=== PATIENT | female | born 1950 | race Caucasian/White ===

== ENCOUNTER → 2017-09-06 16:32 | Outpatient (CLI) | payer MEDICARE, SELFPAY ==
[2017-09-06 17:45] LABS: Absolute Lymphocyte Count 1.55 X10^3/ul (0.83-4.51); Absolute Neutrophil Count 2.7 X10^3/uL (2.0-7.7); Basophil# 0.02 X10^3/uL; Basophil% 0.4 % (0-1); Eosinophil# 0.19 X10^3/uL; Eosinophils% 3.9 % (0-5); Hematocrit 39.8 % (37-47); Hemoglobin 13.1 g/dl (12.0-15.0); Lymphocyte # 1.55 X10^3/ul (4.0); Lymphocyte % 31.8 % (19-41); Mean Corp Hgb Conc 32.9 g/gl (32-36); Mean Corpuscular Hgb 27.6 pg (27.0-32.0); Mean Corpuscular Volume 83.8 fL (81-99); Mean Platelet Vol. 9.7 fl (6.2-12.0); Monocyte# 0.39 X10^3/uL; Neutrophil # 2.71 X10^3/uL (2.7-7.7); Neutrophil % 55.5 % (47-70); Platelet Count 312 K/mm3 (150-450); RBC Distribution Width CV 15.5 % (11.6-14.6); RBC Distribution Width SD 46.8 fl (35.1-43.9); Red Blood Count 4.75 M/mm3 (4.2-5.4); White Blood Count 4.9 K/mm3 (4.4-11.0)
[2017-09-06 17:47] LABS: POSITIVE COUNT NO; POSITIVE DIFFERENTIAL NO; POSITIVE MORPHOLOGY NO
[2017-09-06 17:55] LABS: Vitamin D,25 Hydroxy 30.8 ng/mL (29.95-100.01)
[2017-09-06 18:12] LABS: ALB/GLOB Ratio 0.9 RATIO (0.9-2.4); AST(SGOT) 20 U/L (15-37); Alanine Aminotransfer ALT/SGPT 24 U/L (13-56); Albumin, Serum 3.4 g/dL (3.2-5.0); Alkaline Phosphatase 122 U/L (45-117); Anion Gap 11 (5-15); BUN 12 mg/dL (7-18); BUN/Creat Ratio 16.4 RATIO (10-20); Calcium,Total 8.8 mg/dL (8.5-10.1); Chloride 110 mmol/L (98-107); Creatinine, Serum 0.73 mg/dL (0.55-1.02); EST Glomerular Filtration Rate 84 mL/min (>60); Est Glom Filt Rate - Afr Amer 102 mL/min (>60); Globulin 3.6 g/dL (2.2-4.2); Glucose 135 mg/dL (74-106); Potassium 3.9 mmol/L (3.5-5.1); Sodium Level 143 mmol/L (136-145); Thyroid Stim Hormone (TSH) 1.19 uIU/mL (0.358-3.74)
== END ==
PROVIDERS: Visit Provider Family Medicine Geriatric Medicine
DX: E11.9 Type 2 diabetes mellitus without complications (principal); E55.9 Vitamin D deficiency, unspecified; I10 Essential (primary) hypertension
CPT/HCPCS: 36415; 80053; 82306; 84443; 85025

== ENCOUNTER → 2018-03-10 14:43 | Outpatient (CLI) | payer MEDICARE, SELFPAY ==
[2016-10-25 16:24] VITALS: BMI 30.7
[2018-03-10 15:54] LABS: Absolute Lymphocyte Count 2.07 X10^3/ul (0.83-4.51); Absolute Neutrophil Count 3.4 X10^3/uL (2.0-7.7); Basophil# 0.03 X10^3/uL; Basophil% 0.5 % (0-1); Eosinophil# 0.19 X10^3/uL; Hematocrit 34.2 % (37-47); Hemoglobin 10.4 g/dl (12.0-15.0); Lymphocyte # 2.07 X10^3/ul (4.0); Lymphocyte % 33.2 % (19-41); Mean Corp Hgb Conc 30.4 g/gl (32-36); Mean Corpuscular Hgb 21.1 pg (27.0-32.0); Mean Corpuscular Volume 69.5 fL (81-99); Mean Platelet Vol. 9.8 fl (6.2-12.0); Monocyte# 0.57 X10^3/uL; Monocyte% 9.1 % (0-10); Neutrophil # 3.35 X10^3/uL (2.7-7.7); Neutrophil % 53.9 % (47-70); Platelet Count 386 K/mm3 (150-450); RBC Distribution Width CV 20.8 % (11.6-14.6); RBC Distribution Width SD 51.2 fl (35.1-43.9); Red Blood Count 4.92 M/mm3 (4.2-5.4); White Blood Count 6.2 K/mm3 (4.4-11.0)
[2018-03-10 15:58] LABS: Differential Indicated SCAN CRITERIA MET; POSITIVE COUNT NO; POSITIVE DIFFERENTIAL NO; POSITIVE MORPHOLOGY YES
[2018-03-10 16:03] LABS: Vitamin D,25 Hydroxy 26.5 ng/mL (29.95-100.01)
[2018-03-10 16:05] LABS: AST(SGOT) 16 U/L (15-37); Alanine Aminotransfer ALT/SGPT 23 U/L (13-56); Albumin, Serum 3.6 g/dL (3.2-5.0); Alkaline Phosphatase 120 U/L (45-117); Anion Gap 7 (5-15); BUN 17 mg/dL (7-18); Calcium,Total 8.9 mg/dL (8.5-10.1); Chloride 106 mmol/L (98-107); Creatinine, Serum 0.81 mg/dL (0.55-1.02); EST Glomerular Filtration Rate 75 mL/min (>60); Est Glom Filt Rate - Afr Amer 90 mL/min (>60); Globulin 3.6 g/dL (2.2-4.2); Glucose 113 mg/dL (74-106); Potassium 4.4 mmol/L (3.5-5.1); Protein, Total 7.2 g/dL (6.4-8.2); Sodium Level 140 mmol/L (136-145); Thyroid Stim Hormone (TSH) 1.93 uIU/mL (0.358-3.74)
[2018-03-10 16:23] LABS: Differential Comment SCANNED
[2018-03-10 16:24] LABS: Anisocytosis 2+; Hypochromasia 1+; Ovalocyte 1+; Schistocytes RARE; Target Cells 1+
== END ==
PROVIDERS: Visit Provider Family Medicine Geriatric Medicine
DX: E11.9 Type 2 diabetes mellitus without complications (principal); E55.9 Vitamin D deficiency, unspecified; I10 Essential (primary) hypertension
CPT/HCPCS: 36415; 80053; 82306; 84443; 85025

== ENCOUNTER → 2018-03-16 16:43 | Outpatient (CLI) | payer MEDICARE, OTHER, SELFPAY ==
[2016-10-25 16:24] VITALS: BMI 30.7
--- NOTE | 2018-03-16 16:48 | CT_ITS ---
STUDY: LOW DOSE CT LUNG CANCER SCREENING REASON FOR EXAM: Female, 68 years old. History of 25 pack-year smoker. RADIATION DOSAGE (If Supplied By Facility): CTDIvol = ( 3.02 ) mGy, DLP = ( 100.81 ) mGycm TECHNIQUE: No contrast was administered. Low dose technique was utilized (average mAS-38 and kVp 120). 1.25 mm axial source images with a slice interval of 1.25-mm were reconstructed in lung windows. 2.5 mm axial source images with a slice interval of 2.5-mm were reconstructed in lung windows. 5.0 mm axial source images with a slice interval of 5.0-mm were reconstructed in soft tissue windows. Nodule measured using lung windows on PACS and/or independent workstation with automated measurement of minimum and maximum diameter. Nodule measurement reported as average diameter rounded to the nearest whole number. Growth is defined as an increase ins size of greater than 1.5 mm. COMPARISON: Comparison is made with prior CT scan of the thorax dated May 09, 2016. NODULES: There is a 4 mm noncalcified nodule in the anterior aspect of the right lower lobe abutting the right major fissure. This also evidence of a 5 mm noncalcified nodule in the right middle lobe anteriorly as seen on axial image #119. This is essentially unchanged. 1.5 mm noncalcified nodule in the posterior segment of the left lower lobe as seen on image #161. Total lung nodules (excluding granulomas): 3 Emphysema: No evidence of emphysema. Aorta: Calcified plaques at the level of the aortic arch. Coronary arteries: Mild coronary artery calcifications. CT/Low Dose CT Lung Screening IMPRESSION: Lung-RADS category 2 - Continue annual screening with LDCT in 12 months. IMPORTANT NOTES FOR USE: ACR Lung-RADS Version 1.0 Assessment Categories Release Date: August 21, 2013 Category: Coded 0-4 bases on nodule(s) with highest degree of suspicion. Negative screen is defined as categories 1 and 2; a positive screen is defined as categories 3 and 4. Category 3 and 4A nodules that are unchanged on interval CT should be coded as category 2, and individuals returned to screening in 12 months. Category 4X: Category 3 or 4 nodules with additional imaging findings that increase the suspicion of lung cancer, such as spiculation, GGN that doubles in size in 1 year, enlarged lymph notes, etc. Category Modifiers: S (significant finding unrelated to lung cancer) and C (prior history of treated lung cancer) may be added to the 0-4 Lung-RADS Electronically Signed: Vitor Umanzor MD at 9:04 EST Tel [phone], Service support ,
== END ==
PROVIDERS: Family Provider Family Medicine Geriatric Medicine; PCP Family Medicine Geriatric Medicine; Referring Provider Family Medicine Geriatric Medicine; Visit Provider Family Medicine Geriatric Medicine
DX: Z87.891 Personal history of nicotine dependence (principal)
CPT/HCPCS: G0297

== ENCOUNTER → 2018-03-22 15:15 | Outpatient (CLI) | payer MEDICARE, OTHER, SELFPAY ==
[2016-10-25 16:24] VITALS: BMI 30.7
--- OUTSIDE RECORDS SUMMARY | 2018-05-18 08:16 | XMS RPT_ITS ---
:1950 Author Organization [facility] Care Team Providers Name Role Phone Marvin, Devyn Chi Attending Unavailable Marvin, Devyn Chi Attending Unavailable Marvin, Devyn Chi Attending Unavailable Marvni, Devyn Chi Referring Unavailable Marvin, Devyn Chi Primary Care Unavailable Marvin, Devyn Chi Attending Unavailable Marvin, Devyn Chi Primary Care Unavailable PROBLEMS PROBLEMS No Problem Records FoundPROCEDURES PROCEDURES No Procedure Records FoundRESULTS RESULTS Observed: 03/22/2018 Status: F Source: [place] CULTURE, URINE 3:17 PM [facility] REPOSITORY Urine Culture ORGANISM 1: Presumptive E. coli [place] Count >100,000 Presumptive E. coli: REACTION Amoxacillin/Clavulanic Acid $ 4 S Ampicillin $ 16 I Ampicillin/Sulbactam $ 4 S Cefazolin $ <=4 S Cefepime $ <=1 S Ceftriaxone $ <=1 S Ciprofloxacin $ <=0.25 S ESBL - Ertapenim $$$ <=0.5 S Gentamicin $ <=1 S Imipenem *NF <=0.25 S Levofloxacin $ <=0.12 S Nitrofurantoin $ <=16 S Piperacillin/Tazobactam $$ <=4 S Tobramycin $ <=1 S Trimethoprim/Sulfametho $ <=20 S (NF) indicates non-formulary drug at [facility]. Approval by Infectious Disease Specialist required before non-formulary drugs may be ordered and/or dispensed. Performed By: #### M100.0650 #### [facility] [address] [place], [address] LUNG Observed: 03/16/2018 Status: F Source: [place] SCREENING 4:49 PM [facility] REPOSITORY [facility] Services [address] [place] [address] Lung Screening MR#: [id number] Acct: [id number] Name: SHIRLEY PRATHER Rep #: [id number] : 1950 F 68 From: Vitor Umanzor MD PCP: Devyn Wong MD, Chi Status: REG CLI Study: Low Dose CT Lung Screening Date of Exam: 03/16/18 Exam# [id number] Ordering Dr: Devyn Wong MD STUDY: LOW DOSE CT LUNG CANCER SCREENING REASON FOR EXAM: Female, 68 years old. History of 25 pack- year smoker. RADIATION DOSAGE (If Supplied By Facility): CTDIvol = ( 3.02 ) mGy, DLP = ( 100.81 ) mGycm TECHNIQUE: No contrast was administered. Low dose technique was utilized (average mAS-38 and kVp 120). 1.25 mm axial source images with a slice interval of 1.25- mm were reconstructed in lung windows. 2.5 mm axial source images with a slice interval of 2.5-mm were reconstructed in lung windows. 5.0 mm axial source images with a slice interval of 5.0-mm were reconstructed in soft tissue windows. Nodule measured using lung windows on PACS and/or independent workstation with automated measurement of minimum and maximum diameter. Nodule measurement reported as average diameter rounded to the nearest whole number. Growth is defined as an increase ins size of greater than 1.5 mm. COMPARISON: Comparison is made with prior CT scan of the thorax dated May 09, 2016. NODULES: There is a 4 mm noncalcified nodule in the anterior aspect of the right lower lobe abutting the right major fissure. This also evidence of a 5 mm noncalcified nodule in the right middle lobe anteriorly as seen on axial image #119. This is essentially unchanged. 1.5 mm noncalcified nodule in the posterior segment of the left lower lobe as seen on image #161. Total lung nodules (excluding granulomas): 3 Emphysema: No evidence of emphysema. Aorta: Calcified plaques at the level of the aortic arch. Coronary arteries: Mild coronary artery calcifications. CT/Low Dose CT Lung Screening IMPRESSION: Lung-RADS category 2 - Continue annual screening with LDCT in 12 months. IMPORTANT NOTES FOR USE: ACR Lung-RADS Version 1.0 Assessment Categories Release Date: August 21, 2013 Category: Coded 0-4 bases on nodule(s) with highest degree of suspicion. Negative screen is defined as categories 1 and 2; a positive screen is defined as categories 3 and 4. Category 3 and 4A nodules that are unchanged on interval CT should be coded as category 2, and individuals returned to screening in 12 months. Category 4X: Category 3 or 4 nodules with additional imaging findings that increase the suspicion of lung cancer, such as spiculation, GGN that doubles in size in 1 year, enlarged lymph notes, etc. Category Modifiers: S (significant finding unrelated to lung cancer) and C (prior history of treated lung cancer) may be added to the 0-4 Lung-RADS Electronically Signed: Vitor Umanzor MD at 9:04 EST Tel [phone], Service support , CC: Devyn Wong MD Mechanical Design Engineer: Signed CBC W/DIFF, AUTOMATED Collected: 03/10/2018 Status: F Source: [place] 2:45 PM [facility] REPOSITORY TYPE CODE TESTS RESULT OUT OF RANGE REFERENCE UNITS LAB L100.1000 4.4-11.0 K/mm3 Normal WBC 6.2 LAB L100.1200 4.2-5.4 M/mm3 Normal RBC 4.92 LAB L100.1300 12.0-15.0 g/dl Low HGB 10.4 LAB L100.1400 37-47 % Low HCT 34.2 LAB L100.1500 81-99 fL Low MCV 69.5 LAB L100.1600 27.0-32.0 pg Low MCH 21.1 LAB L100.1700 32-36 g/gl Low MCHC 30.4 LAB L100.1810 11.6-14.6 % High RDW CV 20.8 LAB L100.1820 35.1-43.9 fl High RDW SD 51.2 LAB L100.1900 150-450 K/mm3 Normal PLT 386 LAB L100.2000 6.2-12.0 fl Normal MPV 9.8 LAB L100.2100 47-70 % Normal NEUT% 53.9 LAB L100.2200 19-41 % Normal LY% 33.2 LAB L100.2300 0-10 % Normal MONO% 9.1 LAB L100.2400 0-5 % Normal EO% 3.0 LAB L100.2500 0-1 % Normal BASO% 0.5 LAB L100.2550 0.0-0.9 % Normal IM GRAN % 0.300 Result Comment: IG% - Immature Granulocytes (promyelocytes, myelocytes and metamyelocytes) > 1% indicates that a LEFT SHIFT is Present. LAB L100.2620 2.0-7.7 X10 3/uL Absolute Neut Normal 3.4 LAB L100.2720 0.83-4.51 X10 3/ul Absolute Lymph Normal 2.07 LAB L100.4500 SMEAR COMMENT Normal SCANNED LAB L100.7300 ANISO Normal 2+ LAB L100.7600 HYPOCHROMASIA Normal 1+ LAB L100.8200 OVALOCYTE Normal 1+ LAB L100.8400 SCHISTOCYTES Normal RARE LAB L100.8600 TARGET CELLS Normal 1+ Performed By: #### L100.0100 #### [facility] [address] [place], [address] VITAMIN D,25 HYDROXY Collected: 03/10/2018 Status: F Source: [place] 2:45 PM [facility] REPOSITORY TYPE CODE TESTS RESULT OUT OF REFERENCE UNITS RANGE LAB L506.1000 29.95-100.01 ng/mL Low Vitamin D 26.5 25-OH Result Comment: Vitamin D 25(OH) Status Range Deficiency <20 ng/mL (50nmol/L) Insuffciency 20 - 30 ng/mL (50 - 75 nmol/L) Sufficiency 30 - 100 ng/mL (75 - 250 nmol/L) Toxicity >100 ng/mL (>250 nmol/L) Performed By: #### L506.1000 #### [facility] [address] [place], [address] COMPREHENSIVE METABOLIC Collected: 03/10/2018 Status: F Source: [place] 2:45 PM [facility] REPOSITORY TYPE CODE TESTS RESULT OUT OF RANGE REFERENCE UNITS LAB L501.0100 74-106 mg/dL High GLU 113 Result Comment: Fasting Glucose result from 100 to 125 mg/dL suggests IMPAIRED HOMEOSTASIS per A.D.A. criteria. Please note revised GLUCOSE reference range effective 2017. LAB L501.1000 7-18 mg/dL Normal BUN 17 LAB L501.1100 0.55-1.02 mg/dL Normal CREAT,SERUM 0.81 Result Comment: The validity of the calculated GFR AND GFRAA in patients over 70 years has not been determined. Clinical correlation is essential. LAB L501.1110 >60 mL/min Normal EST GFR 75 Result Comment: Non- GFR Calc LAB L501.1115 >60 mL/min Normal EST GFR - AA 90 Result Comment: GFR Calc LAB L501.1300 10-20 RATIO High BUN/CRE 21.0 LAB L501.1500 6.4-8.2 g/dL T Normal PROT 7.2 LAB L501.1800 3.2-5.0 g/dL Normal ALB 3.6 LAB L501.1950 2.2-4.2 g/dL Normal GLOB 3.6 LAB L501.2000 0.9-2.4 RATIO Normal A/G 1.0 LAB L501.2200 8.5-10.1 mg/dL CA Normal 8.9 LAB L501.4100 15-37 U/L Normal AST 16 LAB L501.4305 45-117 U/L High ALK P 120 LAB L501.4405 13-56 U/L Normal ALT 23 LAB L501.4600 0.20-1.00 mg/dL T Normal BILI 0.30 LAB L501.5300 136-145 mmol/L NA Normal 140 LAB L501.5600 3.5-5.1 mmol/L K Normal 4.4 LAB L501.5900 98-107 mmol/L CL Normal 106 LAB L501.6100 21.0-32.0 mmol/L Normal CO2 27.0 LAB L501.6200 5-15 Normal GAP 7 Performed By: #### L500.4050, L501.9520 #### [facility] [address] [place], [place], [address] THYROID STIM HORMONE Collected: 03/10/2018 Status: F Source: [place] (TSH) 2:45 PM [facility] REPOSITORY TYPE CODE TESTS RESULT OUT OF RANGE REFERENCE UNITS LAB L501.9520 0.358-3.74 uIU/mL Normal TSH 1.93 Performed By: #### L500.4050, L501.9520 #### [facility] [address] [place], [address] CBC W/DIFF, AUTOMATED Collected: 09/06/2017 Status: F Source: [place] 4:34 PM [facility] REPOSITORY TYPE CODE TESTS RESULT OUT OF RANGE REFERENCE UNITS LAB L100.1000 4.4-11.0 K/mm3 Normal WBC 4.9 LAB L100.1200 4.2-5.4 M/mm3 Normal RBC 4.75 LAB L100.1300 12.0-15.0 g/dl Normal HGB 13.1 LAB L100.1400 37-47 % Normal HCT 39.8 LAB L100.1500 81-99 fL Normal MCV 83.8 LAB L100.1600 27.0-32.0 pg Normal MCH 27.6 LAB L100.1700 32-36 g/gl Normal MCHC 32.9 LAB L100.1810 11.6-14.6 % High RDW CV 15.5 LAB L100.1820 35.1-43.9 fl High RDW SD 46.8 LAB L100.1900 150-450 K/mm3 Normal PLT 312 LAB L100.2000 6.2-12.0 fl Normal MPV 9.7 LAB L100.2100 47-70 % Normal NEUT% 55.5 LAB L100.2200 19-41 % Normal LY% 31.8 LAB L100.2300 0-10 % Normal MONO% 8.0 LAB L100.2400 0-5 % Normal EO% 3.9 LAB L100.2500 0-1 % Normal BASO% 0.4 LAB L100.2550 0.0-0.9 % Normal IM GRAN % 0.400 Result Comment: IG% - Immature Granulocytes (promyelocytes, myelocytes and metamyelocytes) > 1% indicates that a LEFT SHIFT is Present. LAB L100.2620 2.0-7.7 X10 3/uL Normal Absolute Neut 2.7 LAB L100.2720 0.83-4.51 X10 3/ul Normal Absolute Lymph 1.55 Performed By: #### L100.0100 #### [facility] [address] [place], [address] VITAMIN D,25 HYDROXY Collected: 09/06/2017 Status: F Source: [place] 4:34 PM [facility] REPOSITORY TYPE CODE TESTS RESULT OUT OF RANGE REFERENCE UNITS LAB L506.1000 29.95-100.01 ng/mL Normal Vitamin D 30.8 25-OH Result Comment: Vitamin D 25(OH) Status Range Deficiency <20 ng/mL (50nmol/L) Insuffciency 20 - 30 ng/mL (50 - 75 nmol/L) Sufficiency 30 - 100 ng/mL (75 - 250 nmol/L) Toxicity >100 ng/mL (>250 nmol/L) Performed By: #### L506.1000 #### [facility] [address] [place], [place], [address] COMPREHENSIVE METABOLIC Collected: 09/06/2017 Status: F Source: [facility] 4:34 PM [facility] REPOSITORY TYPE CODE TESTS RESULT OUT OF RANGE REFERENCE UNITS LAB L501.0100 74-106 mg/dL High GLU 135 Result Comment: Fasting Glucose result greater than or equal to 126 mg/dL suggests DIABETES MELLITUS per A.D.A. criteria. Please note revised GLUCOSE reference range effective 2017. LAB L501.1000 7-18 mg/dL Normal BUN 12 LAB L501.1100 0.55-1.02 mg/dL Normal CREAT,SERUM 0.73 Result Comment: The validity of the calculated GFR AND GFRAA in patients over 70 years has not been determined. Clinical correlation is essential. LAB L501.1110 >60 mL/min Normal EST GFR 84 Result Comment: Non- GFR Calc LAB L501.1115 >60 mL/min Normal EST GFR - AA 102 Result Comment: GFR Calc LAB L501.1300 10-20 RATIO Normal BUN/CRE 16.4 LAB L501.1500 6.4-8.2 g/dL T Normal PROT 7.0 LAB L501.1800 3.2-5.0 g/dL Normal ALB 3.4 LAB L501.1950 2.2-4.2 g/dL Normal GLOB 3.6 LAB L501.2000 0.9-2.4 RATIO Normal A/G 0.9 LAB L501.2200 8.5-10.1 mg/dL CA Normal 8.8 LAB L501.4100 15-37 U/L Normal AST 20 LAB L501.4305 45-117 U/L High ALK P 122 LAB L501.4405 13-56 U/L Normal ALT 24 LAB L501.4600 0.20-1.00 mg/dL T Normal BILI 0.30 LAB L501.5300 136-145 mmol/L NA Normal 143 LAB L501.5600 3.5-5.1 mmol/L K Normal 3.9 LAB L501.5900 98-107 mmol/L High CL 110 LAB L501.6100 21.0-32.0 mmol/L Normal CO2 22.0 LAB L501.6200 5-15 Normal GAP 11 Performed By: #### L500.4050, L501.9520 #### [facility] [address] [place], [place], [address] THYROID STIM HORMONE Collected: 09/06/2017 Status: F Source: [place] (TSH) 4:34 PM [facility] REPOSITORY TYPE CODE TESTS RESULT OUT OF RANGE REFERENCE UNITS LAB L501.9520 0.358-3.74 uIU/mL Normal TSH 1.19 Performed By: #### L500.4050, L501.9520 #### [facility] [address] [facility] [place], [place], [address] ALLERGIES ALLERGIES DATE TYPE / CODE NAME / CODE REACTION SEVERITY SOURCE 10/25/2016 Drug adhesive Rash Unknown [facility] Allergy/416 tape/[id number] [facility] [id number](SNOM (RXNORM) Repository ED CT) ENCOUNTERS ENCOUNTERS ADMIT/DISCHARGE ACCOUNT ADMITTING ENCOUNTER LOCATION SOURCE NUMBER CLASS 03/22/2018 [id number] Ambulatory [address] ing:POLAB3 Repository 03/16/2018 [id number] Ambulatory [place] 7 [facility] ing:CT Repository 03/10/2018 [id number] Ambulatory [place] 2 [facility] ing:POLAB3 Repository 09/06/2017 [id number] Ambulatory [facility] [place] 4 [facility] ing:POLAB3 Repository PAYERS PAYERS ENCOUNTER GUARANTOR PAYER SUBSCRIBER SOURCE 03/22/2018 SHIRLEY A Primary SHIRLEY A [facility] [id number] Insurance:MEDICARE WHITEDOB: [facility] PART A [facility] [id number] Number[place] Repository [id number]: 330 [id number] [phone] () Date:2018-03-22 03/22/2018 Secondary SHIRLEY A [place] Insurance:BANKERS WHITEDOB: [facility] [id number] [facility] Number: Repository [id number] Date:8564-11-89[address], [place] [address]YM: 03/22/2018 Tertiary NOT GIVENUNK [place] Insurance:SELF PAY [facility] Number: Effective Repository Date:2018-03-22 03/16/2018 SHIRLEY A Primary SHIRLEY A [place] [id number] Insurance:MEDICARE [facility]OB[facility] [id number] Number: Repository [id number]: 330 [id number] [phone] () Date:2018-03-10 03/16/2018 Secondary SHIRLEY A [place] Insurance:BANKERS WHITEDOB: [facility] [id number] Hospital Number: Repository [id number] Date:1953-94-44[address], [place] [address]OM: 03/16/2018 Tertiary NOT GIVENUNK Sera Insurance:SELF PAY [facility] Number: Effective Repository Date:2018-03-10 03/10/2018 Shirley A Primary Shirley A [facility] [id number] Insurance:MEDICARE WhiteDOB: [facility] PART A [facility] [id number] Number[place] Repository [id number]: [phone] [id number] [phone] () Date:2018-03-10 03/10/2018 Secondary NOT GIVENUNK [place] Insurance:SELF PAY [facility] Number: Effective Repository Date:2018-03-10 09/06/2017 Shirley A Primary Shirley A [place] [id number] Insurance:MEDICARE WhiteDOB: [facility] PART A [id number] [place] [place] Number[place] Repository [id number]: 330 [id number] [phone] () Date:2017-09-06 09/06/2017 Secondary NOT GIVENUNK S[place] Insurance:SELF PAY [facility] Number: Effective Repository Date:2017-09-06
== END ==
PROVIDERS: Family Provider Family Medicine Geriatric Medicine; PCP Family Medicine Geriatric Medicine; Visit Provider Family Medicine Geriatric Medicine
DX: N39.0 Urinary tract infection, site not specified (principal)
CPT/HCPCS: 87086; 87088; 87186

== ENCOUNTER → 2018-05-04 13:59 | Outpatient (CLI) | payer MEDICARE, SELFPAY ==
[2016-10-25 16:24] VITALS: BMI 30.7
--- NOTE | 2018-05-04 14:04 | BI_ITS ---
MAMMOGRAPHY - BILATERAL SCREENING REASON FOR EXAM: Female, 68 years old. Routine annual screening examination. PERTINENT HISTORY: Non-contributory. TECHNIQUE: Digital bilateral breast missy (3D mammographic acquisition) in the CC and MLO projections. 2-D mediolateral oblique (MLO) and craniocaudad (CC) views of both breasts were obtained. CAD: Full Field Digital Mammography with Computer Added Detection was performed. COMPARISON: Comparison is made with prior study dated March 27, 2016 and March 12, 2015 FINDINGS: Breast Composition: The breasts are almost entirely fatty. There are no dominant masses or suspicious calcifications. No other significant abnormalities are identified. There has been no significant change since the prior study. BI/SCREENING MAMM (CAD), BILAT IMPRESSION: Stable bilateral screening mammogram. Yearly follow-up mammogram recommended. (A) ASSESSMENT CATEGORY: BIRADS Category 1: Negative. A letter regarding these results will be sent to the patient by the facility within 30 days. Approximately 10% of breast cancers are not detected by mammography. A normal mammogram should not delay biopsy of a clinically suspicious abnormality. [id number] Electronically Signed: Vitor Umanzor MD at 15:11 EST Tel [phone], Service support ,
== END ==
PROVIDERS: PCP Family Medicine Geriatric Medicine; Referring Provider Family Medicine Geriatric Medicine; Visit Provider Family Medicine Geriatric Medicine
DX: Z12.31 Encounter for screening mammogram for malignant neoplasm of breast (principal)
CPT/HCPCS: 77063; 77067

== ENCOUNTER → 2018-09-08 | Outpatient (CLI) | payer MEDICARE, SELFPAY ==
[2016-10-25 16:24] VITALS: BMI 30.7
[2018-09-08 16:58] LABS: Absolute Lymphocyte Count 1.22 X10^3/ul (0.83-4.51); Absolute Neutrophil Count 3.2 X10^3/uL (2.0-7.7); Basophil# 0.02 X10^3/uL; Basophil% 0.4 % (0-1); Eosinophil# 0.12 X10^3/uL; Eosinophils% 2.4 % (0-5); Hematocrit 37.4 % (37-47); Hemoglobin 11.7 g/dl (12.0-15.0); Lymphocyte # 1.22 X10^3/ul (4.0); Lymphocyte % 24.1 % (19-41); Mean Corp Hgb Conc 31.3 g/gl (32-36); Mean Corpuscular Volume 73.5 fL (81-99); Mean Platelet Vol. 8.9 fl (6.2-12.0); Monocyte# 0.46 X10^3/uL; Monocyte% 9.1 % (0-10); Neutrophil # 3.24 X10^3/uL (2.7-7.7); Neutrophil % 63.8 % (47-70); Platelet Count 370 K/mm3 (150-450); RBC Distribution Width CV 19.7 % (11.6-14.6); RBC Distribution Width SD 53.3 fl (35.1-43.9); Red Blood Count 5.09 M/mm3 (4.2-5.4); White Blood Count 5.1 K/mm3 (4.4-11.0)
[2018-09-08 17:03] LABS: POSITIVE COUNT NO; POSITIVE DIFFERENTIAL NO; POSITIVE MORPHOLOGY NO
[2018-09-08 17:22] LABS: ALB/GLOB Ratio 0.9 RATIO (0.9-2.4); AST(SGOT) 21 U/L (15-37); Alanine Aminotransfer ALT/SGPT 27 U/L (13-56); Albumin, Serum 3.4 g/dL (3.2-5.0); Alkaline Phosphatase 130 U/L (45-117); Anion Gap 6 (5-15); BUN 15 mg/dL (7-18); BUN/Creat Ratio 17.6 RATIO (10-20); Chloride 108 mmol/L (98-107); Creatinine, Serum 0.85 mg/dL (0.55-1.02); EST Glomerular Filtration Rate 70 mL/min (>60); Est Glom Filt Rate - Afr Amer 85 mL/min (>60); Globulin 3.9 g/dL (2.2-4.2); Glucose 124 mg/dL (74-106); Protein, Total 7.3 g/dL (6.4-8.2); Sodium Level 141 mmol/L (136-145); Thyroid Stim Hormone (TSH) 0.81 uIU/mL (0.358-3.74)
[2018-09-08 17:25] LABS: Vitamin D,25 Hydroxy 22.1 ng/mL (29.95-100.01)
== END | disposition home or self-care (01) ==
LOC: POLAB3 15:45
PROVIDERS: Family Provider Family Medicine Geriatric Medicine; PCP Family Medicine Geriatric Medicine; Visit Provider Family Medicine Geriatric Medicine
DX: E11.9 Type 2 diabetes mellitus without complications (principal); E55.9 Vitamin D deficiency, unspecified; R53.83 Other fatigue
CPT/HCPCS: 36415; 80053; 82306; 84443; 85025

== ENCOUNTER → 2019-01-03 16:40 | Outpatient (CLI) | payer MEDICARE, OTHER, SELFPAY ==
[2016-10-25 16:24] VITALS: BMI 30.7
--- NOTE | 2019-01-03 16:43 | RAD_ITS ---
STUDY: X-RAY CHEST REASON FOR EXAM: Female, 68 years old. Intermittent right lower axillary chest pain radiating to breast. TECHNIQUE: PA and lateral chest. COMPARISON: October 25, 2016. FINDINGS: The lungs are clear and expanded. There is no demonstrated pleural abnormality. Normal size heart. Normal mediastinum and jania. Normal visualized pulmonary arteries. Normal visualized aortic arch and descending thoracic aorta. Degenerative changes of the thoracic spine. Normal visualized ribs, clavicles, and shoulders. There is no demonstrated abnormality of the visualized soft tissue structures of the upper abdomen. RAD/Chest PA and Lateral IMPRESSION: No acute cardiopulmonary disease. Electronically Signed: Jude Arias MD at 0:02 EDT , Service support ,
== END ==
PROVIDERS: Family Provider Family Medicine Geriatric Medicine; PCP Family Medicine Geriatric Medicine; Referring Provider Family Medicine Geriatric Medicine; Visit Provider Family Medicine Geriatric Medicine
DX: R09.1 Pleurisy (principal); N39.0 Urinary tract infection, site not specified
CPT/HCPCS: 71046; 87086; 87088

== ENCOUNTER → 2019-03-13 13:46 | Outpatient (CLI) | payer MEDICARE, SELFPAY ==
[2016-10-25 16:24] VITALS: BMI 30.7
[2019-03-13 17:35] LABS: Absolute Lymphocyte Count 1.41 X10^3/uL (0.83-4.51); Absolute Neutrophil Count 4.5 X10^3/uL (2.0-7.7); Basophil# 0.03 X10^3/uL; Basophil% 0.5 % (0-1); Eosinophil# 0.09 X10^3/uL; Eosinophils% 1.4 % (0-5); Hematocrit 39.4 % (37-47); Hemoglobin 12.1 g/dL (12.0-15.0); Lymphocyte # 1.41 X10^3/ul (4.0); Lymphocyte % 21.2 % (19-41); Mean Corp Hgb Conc 30.7 g/dL (32-36); Mean Corpuscular Hgb 23.3 pg (27.0-32.0); Mean Corpuscular Volume 75.9 fL (81-99); Mean Platelet Vol. 9.6 fl (6.2-12.0); Monocyte# 0.59 X10^3/uL; Monocyte% 8.9 % (0-10); NRBC Flagged by Analyzer 0 % (0-5); Neutrophil % 67.4 % (47-70); Platelet Count 349 K/mm3 (150-450); RBC Distribution Width CV 18.1 % (11.6-14.6); RBC Distribution Width SD 48.7 fl (35.1-43.9); Red Blood Count 5.19 M/mm3 (4.2-5.4); White Blood Count 6.7 K/mm3 (4.4-11.0)
[2019-03-13 17:49] LABS: Vitamin D,25 Hydroxy 24.6 ng/mL (29.95-100.01)
[2019-03-13 17:59] LABS: ALB/GLOB Ratio 0.9 RATIO (0.9-2.4); AST(SGOT) 26 U/L (15-37); Alanine Aminotransfer ALT/SGPT 35 U/L (13-56); Albumin, Serum 3.5 g/dL (3.2-5.0); Alkaline Phosphatase 123 U/L (45-117); Anion Gap 11 (5-15); BUN 13 mg/dL (7-18); BUN/Creat Ratio 15.3 RATIO (10-20); Calcium,Total 8.8 mg/dL (8.5-10.1); Chloride 108 mmol/L (98-107); Creatinine, Serum 0.85 mg/dL (0.55-1.02); EST Glomerular Filtration Rate 70 mL/min (>60); Est Glom Filt Rate - Afr Amer 85 mL/min (>60); Globulin 3.7 g/dL (2.2-4.2); Glucose 96 mg/dL (74-106); Potassium 4.5 mmol/L (3.5-5.1); Protein, Total 7.2 g/dL (6.4-8.2); Sodium Level 139 mmol/L (136-145); Thyroid Stim Hormone (TSH) 1.74 uIU/mL (0.358-3.74)
== END ==
PROVIDERS: Family Provider Family Medicine Geriatric Medicine; PCP Family Medicine Geriatric Medicine; Visit Provider Family Medicine Geriatric Medicine
DX: E11.9 Type 2 diabetes mellitus without complications (principal); E55.9 Vitamin D deficiency, unspecified; I10 Essential (primary) hypertension
CPT/HCPCS: 36415; 80053; 82306; 84443; 85025

== ENCOUNTER → 2019-06-08 14:22 | Outpatient (CLI) | payer MEDICARE, OTHER, SELFPAY ==
[2016-10-25 16:24] VITALS: BMI 30.7
--- NOTE | 2019-06-08 14:25 | RAD_ITS ---
STUDY: X-RAY - LEFT WRIST REASON FOR EXAM: Female, 69 years old. FALL, DEFORMITY, PAIN TECHNIQUE: 3 view(s) of the wrist were obtained. COMPARISON: None. FINDINGS: There is a nondisplaced oblique radial styloid process fracture. There is also noted a longitudinal fracture of the dorsal aspect of the distal radial metaphysis) which is of indeterminate age. There is a nondisplaced ulnar styloid process fracture. Normal radiocarpal articulation. Normal distal radioulnar articulation. Normal carpal bones. Normal carpal articulations. There are degenerative changes of the first metacarpal greater multangular joint. Normal second through fifth carpometacarpal articulations. Normal visualized metacarpal bones. The soft tissue structures are unremarkable. RAD/Wrist min 3 Views IMPRESSION: Nondisplaced oblique radial styloid process fracture. There is an additional fracture of the dorsal aspect of the distal radial metaphysis and epiphysis, parallel in orientation, which is of indeterminate age. Nondisplaced ulnar styloid process fracture. Electronically Signed: Randolph Gibbons MD at 18:17 EST , Service support ,
== END ==
PROVIDERS: PCP Family Medicine Geriatric Medicine; Referring Provider Family Medicine Geriatric Medicine; Visit Provider Family Medicine Geriatric Medicine
DX: M25.532 Pain in left wrist (principal)
CPT/HCPCS: 73110

== ENCOUNTER → 2019-06-19 10:09 | Outpatient (CLI) | payer MEDICARE, OTHER, SELFPAY ==
[2019-06-19 07:55] VITALS: BMI 27.8
--- NOTE | 2019-06-19 10:15 | RAD_ITS ---
STUDY: X-RAY - LEFT WRIST REASON FOR EXAM: Female, 69 years old. fall left wrist fx TECHNIQUE: 3 view(s) of the wrist were obtained. COMPARISON: Previous left wrist x-rays obtained on 06/08/2019 FINDINGS: Services left wrist in 3 projections was seen through a cast which somewhat obscures fine bony detail. An impacted fracture is noted involving the distal left humeral metaphysis and there is a fracture of the radial styloid. These fractures are maintained inferiorly shall alignment. An additional fracture through the ulnar styloid which is also maintaining good position and alignment. RAD/Wrist min 3 Views IMPRESSION: Impacted fracture of the distal left radial metaphysis and ulnar styloid. The left wrist is maintained in fairly good position alignment.. Electronically Signed: Ruben Avila, at 15:04 EST Tel , Service support ,
--- NOTE | 2019-06-19 10:52 | RAD_ITS ---
STUDY: X-RAY - LEFT WRIST REASON FOR EXAM: Left wrist fracture, follow-up after change of casting. TECHNIQUE: 2 view(s) of the wrist were obtained. COMPARISON: Earlier films obtained the same day, and radiographs 06/08/2019. FINDINGS: There is no interval change of the distal radial fracture and ulnar styloid process fracture. Normal radiocarpal articulation. Normal distal radioulnar articulation. Normal carpal bones. Normal carpal articulations. Normal carpometacarpal articulation of the thumb. Normal second through fifth carpometacarpal articulations. Normal visualized metacarpal bones. There is an overlying cast. RAD/Wrist 2 Views IMPRESSION: No interval change of distal radial and ulnar fractures. Electronically Signed: Juan J Medrano MD at 11:06 EST Tel , Service support ,
== END ==
PROVIDERS: PCP Family Medicine Geriatric Medicine; Referring Provider Orthopaedic Surgery; Visit Provider Orthopaedic Surgery
DX: S52.502A Unspecified fracture of the lower end of left radius, initial encounter for closed fracture (principal)
CPT/HCPCS: 73100; 73110

== ENCOUNTER → 2019-06-26 10:10 | Outpatient (CLI) | payer MEDICARE, OTHER, SELFPAY ==
[2019-06-19 07:55] VITALS: BMI 27.8
--- NOTE | 2019-06-26 10:11 | RAD_ITS ---
STUDY: X-RAY - LEFT WRIST REASON FOR EXAM: Follow-up fracture. TECHNIQUE: 3 view(s) of the wrist were obtained. COMPARISON: Radiographs 06/19/2019. FINDINGS: There is no interval change of the distal radial fracture and ulnar styloid process fracture. Normal radiocarpal articulation. Normal distal radioulnar articulation. Normal carpal bones. Normal carpal articulations. Normal carpometacarpal articulation of the thumb. Normal second through fifth carpometacarpal articulations. Normal visualized metacarpal bones. There is an overlying cast. RAD/Wrist min 3 Views IMPRESSION: No interval change of distal radial and ulnar fractures. Electronically Signed: Juan J Medrano MD at 11:27 EST Tel , Service support ,
== END ==
PROVIDERS: PCP Family Medicine Geriatric Medicine; Referring Provider Orthopaedic Surgery; Visit Provider Orthopaedic Surgery
DX: S52.502A Unspecified fracture of the lower end of left radius, initial encounter for closed fracture (principal)
CPT/HCPCS: 73110

== ENCOUNTER → 2019-07-19 11:44 | Outpatient (CLI) | payer MEDICARE, OTHER, SELFPAY ==
[2019-06-26 10:14] VITALS: BMI 27.8
--- NOTE | 2019-07-19 11:45 | RAD_ITS ---
STUDY: X-RAY - LEFT WRIST REASON FOR EXAM: Female, 69 years old. FOLLOW UP WRIST FX TECHNIQUE: 3 view(s) of the wrist were obtained. COMPARISON: Comparison is made with prior examination dated June 26, 2019. FINDINGS: There is evidence of healing of the distal radial and ulnar styloid fractures. The alignment is maintained. Normal radiocarpal articulation. Normal distal radioulnar articulation. Normal carpal bones. Normal carpal articulations. Normal carpometacarpal articulation of the thumb. Normal second through fifth carpometacarpal articulations. Normal visualized metacarpal bones. Soft tissue swelling. RAD/Wrist min 3 Views IMPRESSION: Healing fracture of the distal radial metaphysis and ulnar styloid. The alignment is well maintained. Persistent soft tissue swelling. Electronically Signed: Vitor Umanzor, at 13:13 EDT , Service support ,
== END ==
PROVIDERS: PCP Family Medicine Geriatric Medicine; Referring Provider Orthopaedic Surgery; Visit Provider Orthopaedic Surgery
DX: S52.92XA Unspecified fracture of left forearm, initial encounter for closed fracture (principal)
CPT/HCPCS: 73110

== ENCOUNTER → 2019-09-12 13:17 | Outpatient (CLI) | payer MEDICARE, OTHER, SELFPAY ==
[2019-08-16 11:11] VITALS: BMI 27.8
[2019-09-12 14:35] LABS: Absolute Lymphocyte Count 1.85 X10^3/uL (0.83-4.51); Absolute Neutrophil Count 3.4 X10^3/uL (2.0-7.7); Basophil# 0.03 X10^3/uL; Basophil% 0.5 % (0-1); Eosinophils% 3.3 % (0-5); Hematocrit 38.8 % (37-47); Lymphocyte # 1.85 X10^3/ul (4.0); Lymphocyte % 30.3 % (19-41); Mean Corp Hgb Conc 30.9 g/dL (32-36); Mean Corpuscular Hgb 24.5 pg (27.0-32.0); Mean Corpuscular Volume 79.3 fL (81-99); Mean Platelet Vol. 9.3 fl (6.2-12.0); Monocyte# 0.62 X10^3/uL; Monocyte% 10.2 % (0-10); NRBC Flagged by Analyzer 0 % (0-5); Neutrophil # 3.38 X10^3/uL (2.7-7.7); Neutrophil % 55.4 % (47-70); Platelet Count 364 K/mm3 (150-450); RBC Distribution Width CV 18.2 % (11.6-14.6); Red Blood Count 4.89 M/mm3 (4.2-5.4); White Blood Count 6.1 K/mm3 (4.4-11.0)
[2019-09-12 14:47] LABS: Vitamin D,25 Hydroxy 23.2 ng/mL
[2019-09-12 14:54] LABS: ALB/GLOB Ratio 0.9 RATIO (0.9-2.4); AST(SGOT) 17 U/L (15-37); Alanine Aminotransfer ALT/SGPT 29 U/L (13-56); Albumin, Serum 3.6 g/dL (3.2-5.0); Alkaline Phosphatase 140 U/L (45-117); Anion Gap 6 (5-15); BUN 13 mg/dL (7-18); Calcium,Total 9.3 mg/dL (8.5-10.1); Chloride 107 mmol/L (98-107); Creatinine, Serum 0.81 mg/dL (0.55-1.02); EST Glomerular Filtration Rate 74 mL/min (>60); Est Glom Filt Rate - Afr Amer 89 mL/min (>60); Globulin 3.8 g/dL (2.2-4.2); Glucose 87 mg/dL (74-106); Potassium 4.9 mmol/L (3.5-5.1); Protein, Total 7.4 g/dL (6.4-8.2); Sodium Level 141 mmol/L (136-145); Thyroid Stim Hormone (TSH) 1.55 uIU/mL (0.358-3.74)
== END ==
PROVIDERS: PCP Family Medicine Geriatric Medicine; Visit Provider Family Medicine Geriatric Medicine
DX: E11.9 Type 2 diabetes mellitus without complications (principal); E55.9 Vitamin D deficiency, unspecified; I10 Essential (primary) hypertension
CPT/HCPCS: 36415; 80053; 82306; 84443; 85025

== ENCOUNTER 2019-09-14 15:30 | Outpatient (RCR) | payer MEDICARE, OTHER, SELFPAY ==
[2019-07-19 11:55] VITALS: BMI 27.8
--- NOTE | 2019-07-25 07:43 | HP.OTEVAL ---
Patient's Visit Information SHIRLEY PRATHER is a 69 year old F, referred to Occupational Therapy by Steven Francois DO, with a diagnosis of left distal radius fx. Date of Evaluation: 07/24/19 Occupational Therapist: PORTILLO Atkinson/Chad, CHT - Subjective Subjective: This 69 year old female was seen for OT eval with dx of left distal radius fx. Pt states on 06/07/19 she had a fall. pt states she went to on 06/08/19 and was refered to orth. and placed in cast for 5 weeks 2 days. pt arrives to OT with order for eval/tx AROM/PROM/strengthening - current 5# lift restriction for 2 weeks -( pt able to lift more after August 02, 2019). pt states she is right handed- pt states she her left wrist/hand hurst with use. pt requires increase help with ADLs and IADLs. - Pain left wrist 0 Pain Intensity Range: 5 - ROM Forearm: right WNL left supination wnl pronation 60 Wrist: right 65/70 left 50/30 ROM Comments: pt demo full composite fist - Strength Supervisor Tumbling And Rolling: right 40# left NT Lateral Pinch: Right 10# left NT Tripod Pinch: Right 10# left NT Strength Comments: will test senior android software engineer strength in two weeks following lift of restrictions - Edema Wrist: right 15cm left 17cm - Sensation Sensation Comments: denies - Quick DASH-Disab of Arm,Shoulder& Hand Quick DASH Score: 75.0000 - Goals Goal:: PT will demo an increase in senior android software engineer strength by 20# to increase independent with basic occupations of daily living to return pt to PLOF by D/C. Pt will demo an increase in lateral and tripod pinch by 2# to increase pts independent with opening baggies, containers at PLOF by D/C. Goal:: Pt will demo an increase in wrist ROM equal to unaffected wrist to return pt to PLOF with grooming, dressing and home mtg tasks by D/C. Pt will demo an increase in forearm supination by 70* or greater to increase pts ind. With ADls and IADLS by d/c Goal:: pt will report pain no greater than 1/10 with use of ADLs and IADls by d/c Goal:: pt will demo understanding of edema control deep. by end of 1st session. - Rehabilitation General Assessment: Pt demo with limited left wrist and forearm ROM, limited strength from healing fx. Due to limitations pt reports she is having more difficulty with performing ADLs and IADLS. Pt would benefit from skilled OT services 1-2 x week for 6 weeks to return pt to PLOF. Today therapist ed. pt on AROM, AAROM and re-ed. on her 5# lift restriction until August 01. Pt was ed. on edema control and given handouts on ex. pt demo understanding and agree to POC. Rehabilitation Potential: Good - Anticipated Interventions Anticipated Interventions: A/AAROM/PROM, Strengthening, Massage, Modalities, Joint Protection/Energy Conservation, Ergonomic Education - Visit Plan Frequency: 1-2x /Week Duration: 6 Weeks General Plan: therapist will progress pt with ROM and PRE as jaleel. Pt currently 5# lifting restriction for 2 weeks (July) and progress as tolerated. TEXT: Thank you for the opportunity to evaluate your patient. For Medicare and Medicare HMO plans, please review the plan of care and approve it. It will need to be FAXED BACK to us at [phone] for Medicare purposes. Please let me know if there are questions or concerns regarding this plan of care. Physician Signature: Date:
--- NOTE | 2019-10-03 11:25 | HP.OTDCSUM_ITS ---
It has been my pleasure to treat SHIRLEY PRATHER under orders from Dr. Steven Francois DO, for the diagnosis of left distal radius fx for a total of 7 visit(s). Please see the following information for a summary of their discharge status. % Improvement: 80 Objective/Function: left dynamic balancer set up worker strength 30# a increase from 15#. left lateral pinch 4#. left tripod pinch 5#. left tip pinch 3#. left wrist ROM 60/40. left forearm supination 70. left forearm pronation 80. pt reports she is IND. with ADLS and IADSL Patient Goals: Regain Mobility, Regain Strength, Decrease Pain, Use Hand/Wrist/Arm Normally Again, Be More Independent in ADLS Goal:: PT will demo an increase in dynamic balancer set up worker strength by 20# to increase independent with basic occupations of daily living to return pt to PLOF by D/C. Pt will demo an increase in lateral and tripod pinch by 2# to increase pts independent with opening baggies, containers at PLOF by D/C. Goal:: Pt will demo an increase in wrist ROM equal to unaffected wrist to return pt to PLOF with grooming, dressing and home mtg tasks by D/C. Pt will demo an increase in forearm supination by 70* or greater to increase pts ind. With ADls and IADLS by d/c Goal:: pt will report pain no greater than 1/10 with use of ADLs and IADls by d/c Goal:: pt will demo understanding of edema control deep. by end of 1st session. Plan: D/C Discharge Comments: PT was see for 7 OT session due to a left wrist fx. pt has made good gains with ROM and strength and reports 80% return in her daily function. Pt has met OT goals and therapist has encouraged pt to cont. use of left hand with ADLs and IADLs and cont. with PRE HEP to continue to gain strength . If there are questions or concerns regarding this patient's occupational therapy, please fell free to call me at [phone]. Thank you for the referral of this patient. Sincerely, Carla Davila, OTR/L, CHT
== END 2019-09-14 19:00 | disposition home or self-care (01) ==
LOC: OT 15:30
PROVIDERS: PCP Family Medicine Geriatric Medicine; Referring Provider Orthopaedic Surgery; Visit Provider Orthopaedic Surgery
DX: S52.502D Unspecified fracture of the lower end of left radius, subsequent encounter for closed fracture with routine healing (principal)
CPT/HCPCS: 97110; 97166; 97530

== ENCOUNTER → 2019-10-04 | Outpatient (CLI) | payer MEDICARE, OTHER, SELFPAY ==
[2019-08-16 11:11] VITALS: BMI 27.8
== END | disposition home or self-care (01) ==
LOC: POLAB3 15:34 → LABSPEC 15:36
PROVIDERS: PCP Family Medicine Geriatric Medicine; Visit Provider Family Medicine Geriatric Medicine
DX: N39.0 Urinary tract infection, site not specified (principal)
CPT/HCPCS: 87077; 87086; 87088; 87186

== ENCOUNTER 2020-02-04 15:03 | Emergency (ER) | payer MEDICARE, OTHER, SELFPAY ==
[2019-08-16 11:11] VITALS: BMI 27.8
[2020-02-04 15:04] VITALS: BP 101/63; PULSE 94; RESP 18; TEMP 36.1; O2SAT 96; BMI 29.7
--- NOTE | 2020-02-04 15:33 | ED.VIS.GEN ---
History of Present Illness Chief Complaint: Allergic Reaction Informant: Patient Onset: Days - 2-3 Context: Gradual Onset - after stung by bee in the 4-5th webspace R hand Timing: Continuous Quality: swollen and very itchy Location: R hand, wrist Current Severity: Moderate Maximum Severity: Moderate Worsened by: nothing Relieved by: nothing. has taken benadryl, aleve. Associated Symptoms: none. no pain. Narrative: Patient states she was wanted to be away 2 days ago, and we got stuck in the morning on her ring finger of her right hand, stinging her in the webspace between the fourth and fifth digits. She gradually later developed swelling, redness, itching. No pain except for a little soreness at the sting site, that is gone now. She was applying baking soda to this area, Epson salts, and something else. She denies any shortness of breath, edema in other areas, trouble swallowing, lightheadedness. - Past Medical History (1) Borderline diabetes Status: Chronic Past Medical History - Allergies and Home Meds Allergies/Adverse Reactions: Allergies adhesive tape Adverse Reaction (Verified 02/04/20 15:04) Rash Primary Care Physician: Devyn Wong Chi, MD [Primary Care Provider] - Lives: Alone Smoking Status: Current every day smoker Review of Systems General: Denies: Chills, Fever, Sweats Eyes: Denies: Visual changes - bilaterally, Diplopia ENT: Denies: Rhinorrhea, Sore throat Cardiovascular: Denies: Chest pain, Palpitations Respiratory: Denies: Dyspnea, Cough, Dyspnea on exertion Gastrointestinal: Denies: Abdominal pain, Nausea, Vomiting, Diarrhea, Melena, Hematochezia Genitourinary: Denies: Dysuria, Hematuria, Frequency Musculoskeletal: Reports: Swelling - Locally right upper extremity, see HPI. Denies: Back pain, Extremity Pain Skin: Reports: Rash. Denies: Wounds Neurological: Denies: Headache, Weakness, Numbness Physical Exam Vital Signs/Narrative: Vital Signs Temp Pulse Resp BP Pulse Ox 02/04/20 15:04 96.9 F L 94 18 101/63 96 Inital Vital Signs reviewed: Yes General: Well nourished, Well developed, No Acute Distress Head: Normocephalic, Atraumatic ENT: Moist mucous membranes, No rhinorrhea, - - No stridor Neck: Supple, Nontender Cardiovascular: Regular rate, Regular rhythm, No murmurs Respiratory: No distress Extremities: Nontender, Edema - Locally right hand and wrist., - - Full range of motion throughout right upper extremity, all digits. No tenderness in the soft tissues or bones. Skin: No Trauma, Rash - Mild erythema with swelling right wrist and entire hand dorsum, no lymphangitis, no tenderness. Apparent sting site in the webspace between the right fourth and fifth digits dorsally. Neurological: Alert, Oriented x3, Cranial nerves II-XII grossly intact, Normal Strength, Normal Sensation, Normal Gait Psychological: Normal affect, Normal Mood Diagnostic/Tx/Re-eval - Medical Decision Making Patient states she was told she does not have diabetes but may have prediabetes and is still on medications for that. In discussing risk and benefits of prednisone, she is okay doing a lesser dose. I gave her 30 mg here and prescribed her 20 mg daily for 5 days. If her swelling and itching resolves before then she may stop the medication. She may also use topical hydrocortisone cream 2-3 times daily as needed. I do not think that there is any type of cellulitis or infection there now. We discussed signs symptoms of that and reasons to return to the ER and she is comfortable with that plan. ED Disposition - Plan for ED Patient: Disposition: Home or Assisted Living Diagnosis: Hymenoptera reaction Instructions: ED Insect Sting Local Reaction Prescriptions: Prednisone [Deltasone] 20 mg PO DAILY 5 Days #5 tab Transmission Status: Pending to [facility]/pharmacy #[id number] Referrals: Devyn Wong Chi, MD [Primary Care Provider] -
[2020-02-04] MEDS: predniSONE 20 MG Tablet 30 MG PO (15:59)
[2020-02-04 16:01] VITALS: PULSE 91; RESP 17; O2SAT 95
== END 2020-02-04 16:07 | disposition home or self-care (01) ==
PROVIDERS: Emergency Provider Emergency Medicine; PCP Family Medicine Geriatric Medicine
DX: T63.441A Toxic effect of venom of bees, accidental (unintentional), initial encounter (principal); Y92.9 Unspecified place or not applicable; R73.03 Prediabetes; Z79.84 Long term (current) use of oral hypoglycemic drugs; F17.200 Nicotine dependence, unspecified, uncomplicated
CPT/HCPCS: 99283

== ENCOUNTER → 2020-03-14 13:04 | Outpatient (CLI) | payer MEDICARE, OTHER, SELFPAY ==
[2020-03-14 17:08] LABS: Absolute Lymphocyte Count 1.41 X10^3/uL (0.83-4.51); Absolute Neutrophil Count 4.3 X10^3/uL (2.0-7.7); Basophil# 0.02 X10^3/uL; Basophil% 0.3 % (0-1); Eosinophil# 0.13 X10^3/uL; Hematocrit 41.7 % (37-47); Hemoglobin 12.6 g/dL (12.0-15.0); Lymphocyte # 1.41 X10^3/ul (4.0); Lymphocyte % 22.2 % (19-41); Mean Corp Hgb Conc 30.2 g/dL (32-36); Mean Corpuscular Hgb 24.9 pg (27.0-32.0); Mean Corpuscular Volume 82.2 fL (81-99); Mean Platelet Vol. 9.7 fl (6.2-12.0); Monocyte# 0.46 X10^3/uL; Monocyte% 7.2 % (0-10); NRBC Flagged by Analyzer 0 % (0-5); Neutrophil # 4.31 X10^3/uL (2.7-7.7); Platelet Count 384 K/mm3 (150-450); RBC Distribution Width CV 16.5 % (11.6-14.6); RBC Distribution Width SD 49.6 fl (35.1-43.9); Red Blood Count 5.07 M/mm3 (4.2-5.4); White Blood Count 6.4 K/mm3 (4.4-11.0)
[2020-03-14 17:18] LABS: Vitamin D,25 Hydroxy 25.5 ng/mL
[2020-03-14 17:36] LABS: AST(SGOT) 17 U/L (15-37); Alanine Aminotransfer ALT/SGPT 25 U/L (13-56); Albumin, Serum 3.7 g/dL (3.2-5.0); Alkaline Phosphatase 148 U/L (45-117); Anion Gap 7 (5-15); BUN 10 mg/dL (7-18); BUN/Creat Ratio 11.4 RATIO (10-20); Calcium,Total 9.2 mg/dL (8.5-10.1); Chloride 107 mmol/L (98-107); Creatinine, Serum 0.88 mg/dL (0.55-1.02); EST Glomerular Filtration Rate 67 mL/min (>60); Est Glom Filt Rate - Afr Amer 81 mL/min (>60); Globulin 3.8 g/dL (2.2-4.2); Glucose 109 mg/dL (74-106); Potassium 4.2 mmol/L (3.5-5.1); Protein, Total 7.5 g/dL (6.4-8.2); Sodium Level 138 mmol/L (136-145); Thyroid Stim Hormone (TSH) 1.42 uIU/mL (0.358-3.74)
== END ==
PROVIDERS: PCP Family Medicine Geriatric Medicine; Visit Provider Family Medicine Geriatric Medicine
DX: E11.9 Type 2 diabetes mellitus without complications (principal); E55.9 Vitamin D deficiency, unspecified; I10 Essential (primary) hypertension
CPT/HCPCS: 36415; 80053; 82306; 84443; 85025

== ENCOUNTER → 2020-04-10 | Outpatient (CLI) | payer MEDICARE, OTHER, SELFPAY | END | disposition home or self-care (01) | LOC: POLAB3 15:30 → LABSPEC 15:31 | PROVIDERS: PCP Family Medicine Geriatric Medicine; Visit Provider Family Medicine Geriatric Medicine | DX: N39.0 Urinary tract infection, site not specified (principal) | CPT/HCPCS: 87086; 87088 ==

== ENCOUNTER → 2020-04-30 10:07 | Outpatient (CLI) | payer MEDICARE, OTHER, SELFPAY ==
--- NOTE | 2020-04-30 10:45 | MRI_ITS ---
STUDY: MR PELVIS WITH T WITHOUT CONTRAST REASON FOR EXAM: Female, 70 years old. urethral cyst, diverticulum, unable to urinate x 3 days TECHNIQUE: Standardized fat and water weighted pulse sequences were obtained in all 3 orthogonal planes, pre-and post contrast administration. IV Dotarem 17ml was administered for the contrast portion of the examination. COMPARISON: None. FINDINGS: Normal urinary bladder. Normal visualized small intestine. Normal visualized colon. There is no pelvic fluid. 3 x 6 mm oval mass of water intensity in the midline between the posterior wall of the urethra and the anterior wall of the vagina. Differential diagnosis includes periurethral (Danforth) duct cyst or urethral diverticulum. Normal visualized pelvic arteries. Normal osseous structures. Normal abdominal wall. MRI/Pelvis W/WO Contrast IMPRESSION: 3 x 6 mm cyst in the midline between the distal urethra and distal vagina consistent with a periurethral(Danforth) duct cyst or urethral diverticulum Electronically Signed: Sam Castle MD at 13:09 EST Tel , Service support ,
== END ==
PROVIDERS: PCP Family Medicine Geriatric Medicine; Referring Provider Urology; Visit Provider Urology
DX: N34.0 Urethral abscess (principal); K57.90 Diverticulosis of intestine, part unspecified, without perforation or abscess without bleeding
CPT/HCPCS: 72197; A9575

== ENCOUNTER 2020-07-30 05:54 | Day surgery (SDC) | payer MEDICARE, OTHER, SELFPAY ==
[2020-07-30] VITALS (7 sets, daily range): BP systolic 97–129; BP diastolic 46–65; PULSE 77–92; RESP 16–18; TEMP 36.1–36.6; O2SAT 97–100; BMI 28.3
[2020-07-30] MEDS: Lactated Ringers 1,000 ML 100 ML IV ×2 (06:34→08:31)
[2020-07-30 07:11] LABS: Bedside Glucose 110 mg/dL (70-110)
--- NOTE | 2020-07-30 07:30 | SOF_PTH ---
PATIENT: SHIRLEY PRATHER [place] [facility] [id number] AGE/SX: 70/F ROOM: RE07/30/[address]: Dr. Mar Dudley MD : 1950 BED: DIS: 07/30/2020 SPEC #: [id number] RECD: 07/30/20 09:51 STATUS: LUKE KALIN #: [id number] JASBIR: 07/30/20 07:[address]: Mar Dudley DEPT: SURGICAL PATHOLOGY RECD BY: Rhonda Reich ENTERED: 07/30/20 12:59 SP TYPE: SOFT TISS OTHR DR: Dr. Devyn Wong MD Tissues: Soft tissues, NOS Procedures: Surgery Specimen Level IV HEADER OPERATION: Excision, removal urethral diverticulum PRE-OP DIAGNOSIS: Urethral diverticulum, urge incontinence TISSUE SUBMITTED: Urethral diverticula MICROSCOPIC DIAGNOSIS Urethral diverticula, excision: Consistent with urethral diverticulum with focal minimal chronic inflammation. SJ:melanie 07/31/2020 MICROSCOPIC DESCRIPTION Slides are reviewed. GROSS DESCRIPTION Received in fixative is one container labeled with the patient's name and designated urethral diverticula. The specimen consists of a piece of han soft tissue measuring 0.9 x 0.7 x 0.2 cm. The entire specimen is submitted in one cassette. / STEPHANIE:melanie 07/30/20 TC:5 CPT: 98913
--- NOTE | 2020-07-30 07:32 | OP.PCM_ITS ---
Problem List (1) Urethral diverticulum Status: Acute Report of Operation Date of Procedure: 07/30/20 Pre-Operative Diagnosis: urethral diverticulum Post-Operative Diagnosis: same Surgery/Procedure Performed:: excision urethral diverticulum Type of Anesthesia:: General Specimen's removed: urethral diverticulum Estimated Blood Loss (mL): 5cc Description of Procedure: The patient is a 70-year-old female who was identified as having a distal urethral diverticulum approximately 7 to 8 mm in size in the office on e xamination. After full evaluation, including a discussion of the risks benefits and alternatives, the patient agreed to proceed with surgical intervention. Informed consent included a discussion of the risks of COVID-19 as well. Patient was taken to the operating room and placed on the operating room table. Anesthesia monitored the head, neck, airway, IV access and vital signs throughout the case. Once anesthesia was appropriate ministered the patient was placed into dorsal lithotomy in Trendelenburg position and was prepped and draped in usual sterile fashion. A 16 [place] Magallon catheter was inserted to straight drain and the bladder was emptied. The urethral diverticulum was easily visualized in the 5 o'clock position. The submucosal space surrounding the diverticulum was injected with 1% lidocaine with epinephrine for hydrostatic dissection and hemostatic control. An incision was made in the mucosa overlying the diverticulum. Sharp dissection was performed until the diverticulum was surrounded. The diverticulum was inadvertently breached and urine was identified within the sac. Once the sac was opened the area of the connection with the urethra was identified, the opening itself was not visualized. This area was closed following removal of the diverticulum with 4-0 chromic suture. A second layer closure was performed with 3-0 Vicryl running interlocking suture. The Magallon catheter was removed and the patient was awakened and taken to the recovery room in good condition. There were no complications during this procedure. Grafts/Implants Used: none - Complications none - Admit VTE Documentation VTE Present on Admission: Yes VTE Mechan Device Prophylaxis: SCD's VTE Pharm Prophylaxis ordered?: No Reason prophylaxis not ordered:: Treatment Not Indicated
--- NOTE | 2020-07-30 07:35 | DCINST_ITS ---
Discharge Diet: No Restrictions Discharge Activity: May not drive while taking narcotic pain medications., May Shower May resume sexual activity in: 4-6 weeks Call your doctor if your incision/area has: Continuous Slow Oozing, Sudden Increased Bleeding, Increased Pain/ Swelling, Increased Redness, Foul Smelling Discharge, Swelling at the incision site Call your doctor if you observe: Fever of 101 or Higher, Inability to urinate, Inability to have a bowel movement, Calf discomfort, Uncontrolled pain, - - no strenuous activity, no lifting over 10 pounds, no sexual activity Allergies/Adverse Reactions: Allergies bacitracin [From Neosporin ([id number])] Allergy (Verified 07/23/20 10:15) Rash neomycin [From Neosporin ([id number])] Allergy (Verified 07/23/20 10:15) Rash polymyxin B [From Neosporin ([id number])] Allergy (Verified 07/23/20 10:15) Rash adhesive tape Adverse Reaction (Verified 07/23/20 10:14) Rash Medications to take at Discharge Atorvastatin Calcium [Lipitor] 40 mg PO QHS 10/25/16 Famotidine [Pepcid] 20 mg PO QHS 10/25/16 Omeprazole 10 mg PO DAILY 10/25/16 Venlafaxine HCl [Effexor Xr] 37.5 mg PO DAILY #30 cap.er.24h 10/25/16 metFORMIN HCl [Glucophage] 500 mg PO BID 10/25/16 Aspirin E.C. [Ecotrin] 81 mg PO DAILY@0800 07/23/20 Lisinopril [Zestril] 2.5 mg PO DAILY 07/23/20 Cephalexin [Keflex] 500 mg PO Q12 3 Days #6 capsule 07/30/20 Oxycodone HCl/Acetaminophen [Percocet 5/325] 2 tablet PO Q8H PRN PRN 7 Days #20 tablet 07/30/20 The following prescriptions were given: Cephalexin [Keflex] 500 mg PO Q12 3 Days #6 capsule Transmission Status: Pending to [facility] Oxycodone HCl/Acetaminophen [Percocet 5/325] 2 tablet PO Q8H PRN PRN 7 Days #20 tablet PRN Reason: Pain Transmission Status: Sent to [facility] Primary Care Physician: Devyn Wong Chi, MD [Primary Care Provider] - Test Results: Test results from this visit will be discussed in further detail at your follow- up appointment, if applicable. Please Follow Up With: Mar Dudley MD When: call for appt to be seen in 2 weeks Proposed Discharge Date: 07/30/20
[2020-07-30] MEDS: Cefazolin 2 GM in 0.9% Normal Saline 100 ML IV (07:38)
[2020-07-30] MEDS: Lubricating Jelly 60 GM Tube 30 GM TOPICAL ×2 (07:45→07:51)
[2020-07-30] MEDS: Lidocaine 1% /Epi 1:100 (20ml) 20 ML Vial (08:00)
[2020-07-30] MEDS: Sugammadex Sodium 200 MG/2 ML VIAL IV (08:25)
[2020-07-30 09:20] LABS: Bedside Glucose 125 mg/dL (70-110)
== END 2020-07-30 10:46 | disposition home or self-care (01) ==
LOC: SDC 05:55 → AC 05:55
PROVIDERS: PCP Family Medicine Geriatric Medicine; Referring Provider Urology; Visit Provider Urology
PROC: (CPT 51525; principal; 2020-07-30 07:15)
DX: N36.1 Urethral diverticulum (principal); N39.41 Urge incontinence; R39.11 Hesitancy of micturition; Z20.828 Contact with and (suspected) exposure to other viral communicable diseases; G25.81 Restless legs syndrome; K21.9 Gastro-esophageal reflux disease without esophagitis; E11.9 Type 2 diabetes mellitus without complications; F32.9 Major depressive disorder, single episode, unspecified; Z86.2 Personal history of diseases of the blood and blood-forming organs and certain disorders involving the immune mechanism; Z78.0 Asymptomatic menopausal state; Z87.440 Personal history of urinary (tract) infections; Z79.82 Long term (current) use of aspirin; Z79.84 Long term (current) use of oral hypoglycemic drugs; Z79.899 Other long term (current) drug therapy; F17.200 Nicotine dependence, unspecified, uncomplicated
CPT/HCPCS: 00942; 53230; 82962; 87426; 88304; 88305; C9803; J7120; J2405

== ENCOUNTER → 2020-09-12 13:14 | Outpatient (CLI) | payer MEDICARE, OTHER, SELFPAY ==
[2020-07-30 06:26] VITALS: BMI 28.3
[2020-09-12 17:19] LABS: Absolute Lymphocyte Count 1.69 X10^3/uL (0.83-4.51); Absolute Neutrophil Count 4.1 X10^3/uL (2.0-7.7); Basophil# 0.02 X10^3/uL; Basophil% 0.3 % (0-1); Eosinophil# 0.14 X10^3/uL; Eosinophils% 2.2 % (0-5); Hematocrit 39.8 % (37-47); Hemoglobin 12.2 g/dL (12.0-15.0); Lymphocyte # 1.69 X10^3/ul (0.83-4.51); Lymphocyte % 26.1 % (19-41); Mean Corp Hgb Conc 30.7 g/dL (32-36); Mean Corpuscular Hgb 25.8 pg (27.0-32.0); Mean Corpuscular Volume 84.1 fL (81-99); Mean Platelet Vol. 9.5 fl (6.2-12.0); Monocyte# 0.54 X10^3/uL; Monocyte% 8.3 % (0-10); NRBC Flagged by Analyzer 0 % (0-5); Neutrophil # 4.05 X10^3/uL (2.7-7.7); Neutrophil % 62.6 % (47-70); Platelet Count 370 K/mm3 (150-450); RBC Distribution Width CV 16.3 % (11.6-14.6); RBC Distribution Width SD 50.4 fl (35.1-43.9); Red Blood Count 4.73 M/mm3 (4.2-5.4); Vitamin D,25 Hydroxy 21.2 ng/mL; White Blood Count 6.5 K/mm3 (4.4-11.0)
[2020-09-12 17:39] LABS: AST(SGOT) 29 U/L (15-37); Alanine Aminotransfer ALT/SGPT 41 U/L (13-56); Albumin, Serum 3.6 g/dL (3.2-5.0); Alkaline Phosphatase 125 U/L (45-117); Anion Gap 7 (5-15); BUN 15 mg/dL (7-18); BUN/Creat Ratio 17.6 RATIO (10-20); Calcium,Total 9.3 mg/dL (8.5-10.1); Chloride 105 mmol/L (98-107); Creatinine, Serum 0.85 mg/dL (0.55-1.02); EST Glomerular Filtration Rate 70 mL/min (>60); Est Glom Filt Rate - Afr Amer 85 mL/min (>60); Globulin 3.7 g/dL (2.2-4.2); Glucose 107 mg/dL (74-106); Protein, Total 7.3 g/dL (6.4-8.2); Sodium Level 137 mmol/L (136-145); Thyroid Stim Hormone (TSH) 1.09 uIU/mL (0.358-3.74)
== END ==
PROVIDERS: PCP Family Medicine Geriatric Medicine; Visit Provider Family Medicine Geriatric Medicine
DX: E11.9 Type 2 diabetes mellitus without complications (principal); E55.9 Vitamin D deficiency, unspecified; I10 Essential (primary) hypertension
CPT/HCPCS: 36415; 80053; 82306; 84443; 85025

== ENCOUNTER 2020-10-08 08:04 | Day surgery (SDC) | payer MEDICARE, OTHER, SELFPAY ==
[2020-07-30 06:26] VITALS: BMI 28.3
[2020-10-08] VITALS (11 sets, daily range): BP systolic 95–141; BP diastolic 39–70; PULSE 61–78; RESP 16–18; TEMP 36.1–36.3; O2SAT 65–98; BMI 27.6
--- NOTE | 2020-10-08 08:48 | PCM.OPRPT ---
Problems Associated Problem List Diagnoses (1) Urethral stricture, postoperative: (2) Weak urinary stream: (3) Retention of urine: Report of Operation Date of Procedure: 10/08/20 Pre-Operative Diagnosis: Urethral stricture postoperative, weak urinary stream, urinary retention Post-Operative Diagnosis: Same Surgery/Procedure Performed:: Urethral dilation, cystourethroscopy Surgeon: Mar Dudley Type of Anesthesia: MAC Drains: 18 Palestinian Magallon catheter Description of Procedure: The patient is a 70-year-old female who underwent a an excision of a urethral diverticulum, and has developed a weakened stream and increased postvoid residual. I was unable to easily catheterize her in the office, and she now presents for urethral dilation, cystoscopy and Magallon catheter placement. Informed consent was obtained. The patient was taken to the operating room placed on the operating room table. Anesthesia monitored the head, neck, airway, IV access and vital signs throughout the case. Once anesthesia was apparently administered, the patient was placed into dorsal lithotomy position was prepped and draped in usual sterile fashion. At this time the urethra was intubated with a 12 Palestinian dilator. Subsequently larger dilators were used until the urethra was easily intubated with a 24 Palestinian dilator. At this time the cystoscope was inserted through the urethra under direct visualization and into the urinary bladder. There were no abnormalities identified within the urinary bladder aside from mild trabeculation of the detrusor muscle. The bladder was left minimally full and the cystoscope was removed. A 18 Palestinian Magallon catheter was placed to straight drain with 10 cc in the Magallon balloon. The patient was then awakened and taken to the recovery room in good condition. There were no complications during this procedure. Admit VTE Documentation VTE Present on Admission: Yes VTE Mechan Device Prophylaxis: SCD's VTE Pharm Prophylaxis ordered?: No Reason prophylaxis not ordered:: Treatment Not Indicated
--- NOTE | 2020-10-08 08:49 | PCM.DC ---
Discharge Instructions Diet Discharge Diet: No restrictions Activity Discharge Activity: May Shower May resume sexual activity in: 3 weeks Dressing / Incision Call your doctor if your incision/area has: Continuous Slow Oozing, Increased Pain/ Swelling and Foul Smelling Discharge Call your doctor if you observe: Fever of 101 or Higher, Inability to urinate, Inability to have a bowel movement, Calf discomfort and Uncontrolled pain Catheter: Boogie to leg bag Additional Dressing/Incision Instructions:: Patient to remove boogie catheter and follow up in office in the afternoon Follow Up Care Please Follow Up With: Mar Dudley MD When: call office for appt for afternoon Test Results: Test results from this visit will be discussed in further detail at your follow-up appointment, if applicable. Discharge Plan Admission Attending Provider: Mar Dudley Primary Care Provider: Devyn Wong Chi Instructions Patient Instructions: ED Boogie Catheter, Care Discharge Orders/Prescriptions Prescriptions: New phenazopyridine [Pyridium] 200 MG tablet 200 mg PO TID PRN PRN (Reason: Bladder Spasms) 7 Days Qty: 30 RF: 0 acetaminophen-codeine [acetaminophen-codeine] 1 TABLET tablet 1 - 2 tab PO Q6H PRN PRN (Reason: Pain Score 6-10/10) 3 Days Qty: 20 RF: 0 cephalexin [cephalexin] 500 MG capsule 500 mg PO Q12 3 Days Qty: 6 RF: 0 Continued atorvastatin 40 MG tablet 40 mg PO QHS RF: 0 metformin 500 MG tablet 500 mg PO BID RF: 0 famotidine 20 MG tablet 20 mg PO QHS RF: 0 omeprazole 10 MG capsule,delayed release(DR/EC) 10 mg PO DAILY RF: 0 venlafaxine 37.5 MG capsule,extended release 24hr 37.5 mg PO DAILY Qty: 30 RF: 0 aspirin 81 MG tablet 81 mg PO DAILY@0800 RF: 0 lisinopril 2.5 MG tablet 2.5 mg PO DAILY RF: 0 Referrals / Follow Up: Devyn Wong Chi, MD [Primary Care Provider] - Disposition Disposition (needs filled in before D/C Order can be placed): Home, self care
[2020-10-08] MEDS: Lactated Ringers 1,000 ML 100 ML IV (08:55)
[2020-10-08 08:56] LABS: Bedside Glucose 119 mg/dL (70-110)
[2020-10-08] MEDS: Cefazolin 2 GM in 0.9% Normal Saline 100 ML IV (10:00)
== END 2020-10-08 12:41 | disposition home or self-care (01) ==
LOC: SDC 08:04 → AC 08:04
PROVIDERS: PCP Family Medicine Geriatric Medicine; Referring Provider Urology; Visit Provider Urology
PROC: 0TJB8ZZ Inspection of Bladder, Via Natural or Artificial Opening Endoscopic (ICD-10-PCS; CPT 57410; principal; 2020-10-08 09:40)
DX: N99.12 Postprocedural urethral stricture, female (principal); N32.89 Other specified disorders of bladder; N36.1 Urethral diverticulum; R39.12 Poor urinary stream; R33.9 Retention of urine, unspecified; N95.2 Postmenopausal atrophic vaginitis; E78.00 Pure hypercholesterolemia, unspecified; K21.9 Gastro-esophageal reflux disease without esophagitis; F32.9 Major depressive disorder, single episode, unspecified; F17.210 Nicotine dependence, cigarettes, uncomplicated; Z79.84 Long term (current) use of oral hypoglycemic drugs; Z79.82 Long term (current) use of aspirin; Z79.899 Other long term (current) drug therapy
CPT/HCPCS: 00910; 52281; 82962; J7120; J2405

== ENCOUNTER → 2021-03-13 14:56 | Outpatient (CLI) | payer MEDICARE, OTHER, SELFPAY ==
--- NOTE | 2021-03-13 15:10 | RAD_ITS ---
STUDY: XR Knee 3 Views 03/13/2021 4:28 PM REASON FOR EXAM: Female, 71 years old. BILATERAL KNEE PAIN, RIGHT SIDE CHRONIC, LEFT KNEE PAIN STARTING RECENTLY HX OF BILATERAL KNEE WEAKNESS TECHNIQUE: XR Knee 3 Views right COMPARISON: 08.19.12. FINDINGS: Normal visualized distal femur. Normal visualized proximal tibia and fibula. Normal proximal tibiofibular articulation. There is severe degenerative arthrosis of the medial femorotibial compartment with severe joint space narrowing. There is mild degenerative arthrosis of the lateral femorotibial compartment. There is moderate degenerative arthrosis of the patellofemoral articulation. There is a soft tissue prominence in the suprapatellar region suggesting a small volume joint effusion. The soft tissue structures are unremarkable. RAD/Knee 3 Views IMPRESSION: Degenerative arthrosis. There is a soft tissue prominence in the suprapatellar region suggesting a small volume joint effusion. Electronically Signed: Andrea Haney MD at 16:29 EST , Service support ,
--- NOTE | 2021-03-13 15:10 | RAD_ITS ---
STUDY: XR Knee 3 Views 03/13/2021 4:27 PM REASON FOR EXAM: Female, 71 years old. BILATERAL KNEE PAIN, RIGHT SIDE CHRONIC, LEFT KNEE PAIN STARTING RECENTLY HX OF BILATERAL KNEE WEAKNESS TECHNIQUE: XR Knee 3 Views left COMPARISON: None. FINDINGS: Normal visualized distal femur. Normal visualized proximal tibia and fibula. Normal proximal tibiofibular articulation. There is severe degenerative arthrosis of the medial femorotibial compartment with severe joint space narrowing. There is mild degenerative arthrosis of the lateral femorotibial compartment. There is moderate degenerative arthrosis of the patellofemoral articulation. The soft tissue structures are unremarkable. RAD/Knee 3 Views IMPRESSION: Degenerative arthrosis. Electronically Signed: Andrea Haney MD at 16:28 EST , Service support ,
[2021-03-13 17:29] LABS: Absolute Neutrophil Count 3.4 X10^3/uL (2.0-7.7); Basophil# 0.02 X10^3/uL; Basophil% 0.4 % (0-1); Eosinophil# 0.24 X10^3/uL; Eosinophils% 4.2 % (0-5); Hematocrit 40.1 % (37-47); Hemoglobin 12.7 g/dL (12.0-15.0); Lymphocyte % 26.5 % (19-41); Mean Corp Hgb Conc 31.7 g/dL (32-36); Mean Corpuscular Volume 85.1 fL (81-99); Mean Platelet Vol. 9.7 fl (6.2-12.0); Monocyte# 0.51 X10^3/uL; NRBC Flagged by Analyzer 0 % (0-5); Neutrophil # 3.35 X10^3/uL (2.7-7.7); Neutrophil % 59.4 % (47-70); Platelet Count 357 K/mm3 (150-450); RBC Distribution Width CV 15.7 % (11.6-14.6); RBC Distribution Width SD 48.7 fl (35.1-43.9); Red Blood Count 4.71 M/mm3 (4.2-5.4); White Blood Count 5.7 K/mm3 (4.4-11.0)
[2021-03-13 18:24] LABS: Vitamin D,25 Hydroxy 19.4 ng/mL
[2021-03-13 18:53] LABS: ALB/GLOB Ratio 0.8 RATIO (0.9-2.4); AST(SGOT) 17 U/L (15-37); Alanine Aminotransfer ALT/SGPT 24 U/L (13-56); Albumin, Serum 3.4 g/dL (3.2-5.0); Alkaline Phosphatase 142 U/L (45-117); Anion Gap 8 (5-15); BUN 15 mg/dL (7-18); BUN/Creat Ratio 18.2 RATIO (10-20); Calcium,Total 9.1 mg/dL (8.5-10.1); Chloride 105 mmol/L (98-107); Creatinine, Serum 0.82 mg/dL (0.55-1.02); EST Glomerular Filtration Rate 73 mL/min (>60); Est Glom Filt Rate - Afr Amer 88 mL/min (>60); Glucose 145 mg/dL (74-106); Protein, Total 7.4 g/dL (6.4-8.2); Sodium Level 139 mmol/L (136-145); Thyroid Stim Hormone (TSH) 1.26 uIU/mL (0.358-3.74)
== END ==
LOC: RAD 14:58
PROVIDERS: PCP Family Medicine Geriatric Medicine; Visit Provider Family Medicine Geriatric Medicine
DX: M25.561 Pain in right knee (principal); E11.9 Type 2 diabetes mellitus without complications; E55.9 Vitamin D deficiency, unspecified; I10 Essential (primary) hypertension; M25.562 Pain in left knee
CPT/HCPCS: 36415; 73562; 80053; 82306; 84443; 85025

== ENCOUNTER → 2021-04-08 14:22 | Outpatient (CLI) | payer MEDICARE, OTHER, SELFPAY ==
--- NOTE | 2021-04-08 14:25 | BI_ITS ---
MAMMOGRAPHY - BILATERAL SCREENING REASON FOR EXAM: Female, 71 years old. Routine annual screening examination. PERTINENT HISTORY: Non-contributory. TECHNIQUE: Digital bilateral breast mark (3D mammographic acquisition) in the CC and MLO projections. 2-D mediolateral oblique (MLO) and craniocaudad (CC) views of both breasts were obtained. CAD: Full Field Digital Mammography with Computer Added Detection was performed. COMPARISON: Comparison is made with prior study dated 05/04/2018 and 03/27/2016. FINDINGS: Breast Composition: The breasts are almost entirely fatty. There are no dominant masses or suspicious calcifications. No other significant abnormalities are identified. There has been no significant change since the prior study. BI/SCRN MAMM (CAD)W/MARK BILAT IMPRESSION: Stable bilateral screening mammogram. Yearly follow-up mammogram recommended. (A) ASSESSMENT CATEGORY: BIRADS Category 1: Negative. A letter regarding these results will be sent to the patient by the facility within 30 days. Approximately 10% of breast cancers are not detected by mammography. A normal mammogram should not delay biopsy of a clinically suspicious abnormality. [id number] Electronically Signed: Vitor Umanzor MD at 15:32 EST , Service support ,
== END ==
PROVIDERS: PCP Family Medicine Geriatric Medicine; Visit Provider Family Medicine Geriatric Medicine
DX: Z12.31 Encounter for screening mammogram for malignant neoplasm of breast (principal)
CPT/HCPCS: 77063; 77067

== ENCOUNTER 2021-07-04 12:02 | Outpatient (CLI) | payer MEDICARE, SELFPAY ==
--- NOTE | 2021-07-04 12:08 | EKG12_ITS ---
Test Reason : PRE OP Blood Pressure : / mmHG Vent. Rate : 093 BPM Atrial Rate : 093 BPM P-R Int : 136 ms QRS Dur : 078 ms QT Int : 352 ms P-R-T Axes : 063 040 038 degrees QTc Int : 437 ms Normal sinus rhythm Normal ECG Confirmed by JONNA BRAXTON, SABAS ([id number]), non linear editor BERTIN PAPPAS ([id number]) on 07/07/2021 11:15:35 AM Referred By: Devyn Wong Confirmed By:SABAS COYLE MD
[2021-07-04 12:45] LABS: Absolute Lymphocyte Count 1.12 X10^3/uL (0.83-4.51); Absolute Neutrophil Count 4.3 X10^3/uL (2.0-7.7); Basophil# 0.03 X10^3/uL; Basophil% 0.5 % (0-1); Eosinophil# 0.09 X10^3/uL; Eosinophils% 1.5 % (0-5); Hematocrit 40.5 % (37-47); Hemoglobin 13.2 g/dL (12.0-15.0); Lymphocyte # 1.12 X10^3/ul (0.83-4.51); Lymphocyte % 19.1 % (19-41); Mean Corp Hgb Conc 32.6 g/dL (32-36); Mean Corpuscular Hgb 27.8 pg (27.0-32.0); Mean Corpuscular Volume 85.4 fL (81-99); Mean Platelet Vol. 8.5 fl (6.2-12.0); Monocyte# 0.33 X10^3/uL; Monocyte% 5.6 % (0-10); NRBC Flagged by Analyzer 0 % (0-5); Neutrophil # 4.28 X10^3/uL (2.7-7.7); Platelet Count 340 K/mm3 (150-450); RBC Distribution Width CV 15.5 % (11.6-14.6); Red Blood Count 4.74 M/mm3 (4.2-5.4); White Blood Count 5.9 K/mm3 (4.4-11.0)
--- NOTE | 2021-07-04 12:46 | CT_ITS ---
STUDY: CT RIGHT LOWER EXTREMITY WITHOUT CONTRAST REASON FOR EXAM: Right knee osteoarthritis, surgical planning. TECHNIQUE: Transaxial CT imaging of the lower extremity was performed. Coronal and sagittal images were reformatted. Individualized dose optimization techniques were used for this CT. COMPARISON: Radiographs 03/13/2021. FINDINGS: Knee: There are marginal osteophytes, subchondral eburnation and joint space loss of the lateral femorotibial compartment (coronal reconstruction 28). There are marginal osteophytes with preservation of joint space of the medial femorotibial compartment. There are marginal osteophytes and joint space narrowing of the patellofemoral compartment (axial image 334). There is a small to moderate-sized joint effusion. There is a small intra-articular body in the suprapatellar recess (sagittal reconstruction 50). There is incidental vacuum phenomenon in the lateral femorotibial compartment. Hip: There is preservation of joint space of the right hip. Ankle: Normal tibiotalar, posterior subtalar and talonavicular articulations. There is a small posterior calcaneal enthesophyte. CT/Extremity Lower without Contra IMPRESSION: Right knee osteoarthritis. Electronically Signed: Juan J Medrano MD at 14:59 EST ,
[2021-07-04 13:08] LABS: Albumin, Serum 3.3 g/dL (3.2-5.0); Anion Gap 4 (5-15); BUN 12 mg/dL (7-18); BUN/Creat Ratio 13.1 RATIO (10-20); Calcium,Total 9.4 mg/dL (8.5-10.1); Chloride 106 mmol/L (98-107); Creatinine, Serum 0.92 mg/dL (0.55-1.02); EST Glomerular Filtration Rate 64 mL/min (>60); Est Glom Filt Rate - Afr Amer 77 mL/min (>60); Glucose 153 mg/dL (74-106); Potassium 4.2 mmol/L (3.5-5.1); Sodium Level 137 mmol/L (136-145)
[2021-07-04 13:09] LABS: Hemoglobin A1c 6.2 % (3.8-5.6)
== END 2021-07-04 23:59 | disposition home or self-care (01) ==
PROVIDERS: PCP Family Medicine Geriatric Medicine; Referring Provider Family Medicine Geriatric Medicine; Visit Provider Physician Assistant Surgical
DX: Z01.818 Encounter for other preprocedural examination (principal); E11.9 Type 2 diabetes mellitus without complications; Z01.810 Encounter for preprocedural cardiovascular examination; Z01.811 Encounter for preprocedural respiratory examination
CPT/HCPCS: 36415; 73700; 80048; 82040; 83036; 85025; 93005

== ENCOUNTER → 2021-09-11 | Outpatient (CLI) | payer MEDICARE, SELFPAY ==
--- NOTE | 2021-09-11 15:40 | RAD_ITS ---
EXAM: XR RIGHT HIP WITH PELVIS WHEN PERFORMED, 2 OR 3 VIEWS CLINICAL INDICATION: HIP PAIN TECHNIQUE: Two or three views of the right hip with pelvis when performed. This report was created using [employer] report generation technology. COMPARISON: None. FINDINGS: BONES/JOINTS: Unremarkable. No displaced fracture. No destructive or sclerotic lesions. Note that overlapping bowel shadows may however obscure fine detail. Sacroiliac joint is unremarkable. No widening of the pubic symphysis. The articular structures are unremarkable. SOFT TISSUES: Unremarkable. No soft tissue swelling or gas. RAD/HIP, UNI W/ Pelvis 2-3 Views IMPRESSION: No acute abnormality. Electronically Signed: Velasquez Law MD at 16:03 EDT ,
[2021-09-11 16:23] LABS: Absolute Lymphocyte Count 1.47 X10^3/uL (0.83-4.51); Absolute Neutrophil Count 4.9 X10^3/uL (2.0-7.7); Basophil# 0.03 X10^3/uL; Basophil% 0.4 % (0-1); Eosinophil# 0.15 X10^3/uL; Eosinophils% 2.1 % (0-5); Hematocrit 40.9 % (37-47); Hemoglobin 13.1 g/dL (12.0-15.0); Lymphocyte # 1.47 X10^3/ul (0.83-4.51); Lymphocyte % 20.5 % (19-41); Mean Corpuscular Hgb 27.3 pg (27.0-32.0); Mean Corpuscular Volume 85.2 fL (81-99); Mean Platelet Vol. 9.3 fl (6.2-12.0); Monocyte# 0.57 X10^3/uL; Monocyte% 7.9 % (0-10); NRBC Flagged by Analyzer 0 % (0-5); Neutrophil # 4.94 X10^3/uL (2.7-7.7); Neutrophil % 68.8 % (47-70); Platelet Count 335 K/mm3 (150-450); RBC Distribution Width CV 14.7 % (11.6-14.6); RBC Distribution Width SD 45.9 fl (35.1-43.9); White Blood Count 7.2 K/mm3 (4.4-11.0)
[2021-09-11 16:48] LABS: Vitamin D,25 Hydroxy 44.8 ng/mL
[2021-09-11 16:52] LABS: ALB/GLOB Ratio 0.9 RATIO (0.9-2.4); AST(SGOT) 19 U/L (15-37); Alanine Aminotransfer ALT/SGPT 29 U/L (13-56); Albumin, Serum 3.6 g/dL (3.2-5.0); Alkaline Phosphatase 117 U/L (45-117); Anion Gap 10 (5-15); BUN 22 mg/dL (7-18); BUN/Creat Ratio 28.4 RATIO (10-20); Calcium,Total 9.2 mg/dL (8.5-10.1); Chloride 107 mmol/L (98-107); Creatinine, Serum 0.77 mg/dL (0.55-1.02); EST Glomerular Filtration Rate 78 mL/min (>60); Est Glom Filt Rate - Afr Amer 94 mL/min (>60); Globulin 3.8 g/dL (2.2-4.2); Glucose 98 mg/dL (74-106); Potassium 4.1 mmol/L (3.5-5.1); Protein, Total 7.4 g/dL (6.4-8.2); Sodium Level 140 mmol/L (136-145); Thyroid Stim Hormone (TSH) 1.19 uIU/mL (0.358-3.74)
== END | disposition home or self-care (01) ==
PROVIDERS: PCP Family Medicine Geriatric Medicine; Visit Provider Family Medicine Geriatric Medicine
DX: M25.551 Pain in right hip (principal); E11.9 Type 2 diabetes mellitus without complications; E55.9 Vitamin D deficiency, unspecified; I10 Essential (primary) hypertension
CPT/HCPCS: 36415; 73502; 80053; 82306; 84443; 85025

== ENCOUNTER 2021-10-31 00:47 | Emergency (ER) | payer MEDICARE, SELFPAY ==
[2021-10-31] VITALS (9 sets, daily range): BP systolic 90–133; BP diastolic 42–72; PULSE 68–90; RESP 15–25; TEMP 36.4–36.7; O2SAT 92–100; BMI 32.3
--- NOTE | 2021-10-31 01:24 | RAD_ITS ---
EXAM: XR RIGHT TIBIA AND FIBULA, 2 VIEWS CLINICAL INDICATION: fracture/injury TECHNIQUE: Frontal and lateral views of the right tibia and fibula. This report was created using [employer] report generation technology. COMPARISON: None. FINDINGS: BONES/JOINTS: Fractures of the distal fibular shaft as well as the medial malleolus, with a severe lateral dislocation of the talus. No sclerotic or destructive changes observed. SOFT TISSUES: Soft tissue injury associated with the severe tibiotalar dislocation. No radiopaque foreign body. TUBES, LINES AND DEVICES: Exam limited by overlying support material. RAD/Tibia & Fibula 2 Views IMPRESSION: Fractures of the distal fibular shaft as well as the medial malleolus, with a severe lateral dislocation of the talus. Electronically Signed: Andrea Lockett MD at 2:47 EDT ,
--- NOTE | 2021-10-31 01:27 | ED.VIS.LOWEX ---
HPI History of Present Illness Chief Complaint: Lower Extremity Injury [facility] Medical History (Updated 10/31/21 @ 02:[address] Peter Solano MD) Alcohol use Depression Diabetes Gastric reflux High cholesterol History of rheumatic fever Loose, teeth Retention of urine Smoker Urethral stricture, postoperative Weak urinary stream Home Medications atorvastatin 40 mg tablet 40 mg PO QHS 10/25/16 [History Last Taken Unknown] famotidine 20 mg tablet 20 mg PO QHS 10/25/16 [History Last Taken Unknown] metformin 500 mg tablet 500 mg PO BID 10/25/16 [History Last Taken Unknown] omeprazole 10 mg capsule,delayed release 10 mg PO DAILY 10/25/16 [History Last Taken Unknown] venlafaxine 37.5 mg capsule,extended release 24 hr 37.5 mg PO DAILY ##30 10/25/16 [Rx Last Taken 07/30/20 05:00] aspirin 81 mg tablet,delayed release 81 mg PO DAILY@0800 07/23/20 [History Last Taken Unknown] lisinopril 2.5 mg tablet 2.5 mg PO DAILY 07/23/20 [History Last Taken 07/30/20 05:00] acetaminophen 300 mg-codeine 30 mg tablet 1 - 2 tab PO Q6H PRN PRN Pain Score 6-10/10 3 days #20 TABLETS 10/08/20 [Rx Last Taken Unknown] cephalexin 500 mg capsule 500 mg PO Q12 post-operative 3 days #6 CAPSULES 10/08/20 [Rx Last Taken Unknown] phenazopyridine 200 mg tablet (Pyridium) 200 mg PO TID PRN PRN Bladder Spasms 7 days #30 tabs 10/08/20 [Rx Last Taken Unknown] Allergy/AdvReac Type Severity Reaction Status Date / Time bacitracin Allergy Rash Verified 10/31/21 00:51 [From Neosporin ([id number])] neomycin Allergy Rash Verified 10/31/21 00:51 [From Neosporin ([id number])] polymyxin B Allergy Rash Verified 10/31/21 00:51 [From Neosporin ([id number])] adhesive tape AdvReac Rash Verified 10/31/21 00:51 Surgical History History of hysterectomy History of urologic surgery Hx of cholecystectomy Social History (Updated 08/16/19 @ 11:[address] Steven Francois, DO) Smoking Status: Current every day smoker tobacco type: cigarettes ROS ROS ED Constitutional Constitutional ED: Denies chills or fever(s) Eyes Eyes: Denies change in vision or diplopia ENT ENT ED: Denies ear pain, epistaxis, facial pain or rhinorrhea Cardiovascular Cardiovascular: Denies chest pain or palpitations Respiratory/Chest Respiratory/Chest: Denies cough or dyspnea Gastrointestinal Gastrointestinal: Denies abdominal pain, diarrhea, melena, nausea or vomiting Genitourinary Genitourinary ED: Denies dysuria or hematuria Musculoskeletal Musculoskeletal: Reports extremity pain; Denies back pain or neck pain Integumentary Reports wounds; Denies abscess, Abrasions, laceration or rash Neurologic Neurologic: Denies confusion, headache(s), paresthesias or weakness EXAM Physical Exam Const Vital Signs: 10/31/21 00:47 10/31/21 02:13 10/31/21 02:23 Temperature 97.6 F L 97.6 F L Temperature Source Temporal Pulse Rate 77 73 Pulse Rate [1 (Initial Baseline)] 68 Pulse Rate [2] 82 Pulse Rate [3] 85 Respiratory Rate 18 15 Respiratory Rate [1 (Initial Baseline)] 15 Respiratory Rate [2] 17 Respiratory Rate [3] 23 H Blood Pressure 91/42 L 101/72 Blood Pressure [1 (Initial Baseline)] 90/45 L Blood Pressure [2] 110/70 Blood Pressure [3] 132/68 H Blood Pressure Mean 58 Pulse Ox 95 100 Oxygen Delivery Method Room Air Nasal Cannula Oxygen Delivery Method [1 (Initial Baseline)] Nasal Cannula Oxygen Delivery Method [2] Nasal Cannula Oxygen Delivery Method [3] Nasal Cannula Oxygen Flow Rate (L/min) 2 Oxygen Flow Rate (L/min) [1 (Initial Baseline)] 2 Oxygen Flow Rate (L/min) [2] 2 Oxygen Flow Rate (L/min) [3] 2 10/31/21 02:39 10/31/21 02:41 10/31/21 02:46 Temperature Temperature Source Pulse Rate 90 87 Pulse Rate [1 (Initial Baseline)] Pulse Rate [2] Pulse Rate [3] Respiratory Rate 25 H 22 H Respiratory Rate [1 (Initial Baseline)] Respiratory Rate [2] Respiratory Rate [3] Blood Pressure 118/61 115/60 Blood Pressure [1 (Initial Baseline)] Blood Pressure [2] Blood Pressure [3] Blood Pressure Mean Pulse Ox 92 95 Oxygen Delivery Method Nasal Cannula Nasal Cannula Nasal Cannula Oxygen Delivery Method [1 (Initial Baseline)] Oxygen Delivery Method [2] Oxygen Delivery Method [3] Oxygen Flow Rate (L/min) 2 2 2 Oxygen Flow Rate (L/min) [1 (Initial Baseline)] Oxygen Flow Rate (L/min) [2] Oxygen Flow Rate (L/min) [3] 10/31/21 02:47 10/31/21 02:51 10/31/21 02:57 Temperature 98.1 F Temperature Source Pulse Rate 87 85 Pulse Rate [1 (Initial Baseline)] Pulse Rate [2] Pulse Rate [3] Respiratory Rate 22 H 20 H 24 H Respiratory Rate [1 (Initial Baseline)] Respiratory Rate [2] Respiratory Rate [3] Blood Pressure 115/60 115/60 Blood Pressure [1 (Initial Baseline)] Blood Pressure [2] Blood Pressure [3] Blood Pressure Mean 78 Pulse Ox 95 97 Oxygen Delivery Method Nasal Cannula Oxygen Delivery Method [1 (Initial Baseline)] Oxygen Delivery Method [2] Oxygen Delivery Method [3] Oxygen Flow Rate (L/min) 2 Oxygen Flow Rate (L/min) [1 (Initial Baseline)] Oxygen Flow Rate (L/min) [2] Oxygen Flow Rate (L/min) [3] Positive well nourished and well developed General Appearance ED: well developed and NAD HEENT Reports TM's clear and nasal mucous membranes and turbinates normal atraumatic Face and Sinus: Negative for facial tenderness Tympanic Membrane ED: Yes TM's clear Eyes PERRL and EOMs intact bilaterally Visual Acuity: other Other Details: no entrapment or pain with extraocular movements Neck full ROM and supple General: Negative for tenderness Chest Wall inspection of chest normal and palpation of chest normal Chest: symmetrical chest wall rise; Negative for crepitus or tenderness Resp normal respiratory effort and clear to auscultation bilaterally Percussion: other equal BS bilat Cardio no murmurs Rate: regular rate Rhythm: regular rhythm GI normal to inspection, nondistended, normoactive bowel sounds, soft to palpation and non-tender Back/Spine normal ROM Cervical Spine: Negative for cervical spine tenderness Thoracic Spine / Upper Back: Negative for thoracic spinal tenderness Lumbar Spine / Lower Back: Negative for lumbar spinal tenderness Extremity Extremity Narrative: Open deformity right ankle with distal tibia exposed out of the medial aspect of the skin there, the distal articular surface is visible, where it is supposed to articulate with the talus General Extremety ED: Yes tenderness Neuro oriented x3, CN's II-XII intact bilaterally, moves all extremities, no focal motor deficits and no sensory deficits noted [place] Coma Scale: document GCS findings Spontaneous Obeys Commands Oriented 15 Sensorium / Orientation: awake and alert Psych mental status grossly normal and thought process normal Skin no wounds Lesions: no lesions Rashes: no rashes MDM MDM MDM Narrative Medical decision making narrative: 4 view x-ray series of the right tib-fib on my interpretation show fracture dislocation of the right ankle, clinically it is open. Fracture appears to be at the distal fibula shaft as well as the medial malleolus. Labs obtained in addition to alcohol, she was given IV Ancef, analgesics, sedated for reduction and splinting, which went uneventfully. See the procedure note. This is an open fracture dislocation, isolated injury. Discussed with Dr. Jesus Manuel Ratliff on for orthopedics, who states that the patient needs higher level of care and transfer to a trauma center. She wanted to go to [facility] in [place], discussed with EM physician Dr. Abbott, who accepts the patient. Lab Data Attestation: I reviewed the patient's lab results. Labs: Laboratory Results - last 24 hr 10/31/21 10/31/21 10/31/21 01:54 01:54 01:54 WBC 7.5 RBC 4.64 Hgb 12.6 Hct 40.3 MCV 86.9 MCH 27.2 MCHC 31.3 L RDW Std Deviation 48.6 H RDW Coeff of Chan 15.3 H Plt Count 314 MPV 8.7 Immature Gran % (Auto) 0.800 Neut % (Auto) 74.9 H Lymph % (Auto) 16.0 L [place] % (Auto) 7.1 Eos % (Auto) 0.9 Baso % (Auto) 0.3 Absolute Neuts (auto) 5.6 Absolute Lymphs (auto) 1.20 Nucleated RBC % 0 Sodium 139 Potassium 4.0 Chloride 106 Carbon Dioxide 24.0 Anion Gap 9 BUN 18 Creatinine 1.20 H Estim Creat Clear Calc 38.13 Est GFR (MDRD) Af Amer 57 L Est GFR (MDRD) Non-Af 47 L BUN/Creatinine Ratio 15.0 Glucose 138 H Calcium 9.2 Ethyl Alcohol 140.0 Radiography Diagnostic Testing: Clinical Impression(s) from Imaging Studies Tibia/Fibula X-Ray 10/31/21 01:24 IMPRESSION: Fractures of the distal fibular shaft as well as the medial malleolus, with a severe lateral dislocation of the talus. Electronically Signed: Andrea Lockett MD at 2:47 EDT Reading Location ID and State: [facility] / [place] Tel , Service support , Procedures Lower Extremity Splints Lower Extremity Splint: Orthoglass (Fabricated, short leg posterior with sugar-tong) Splint Fabrication: Fabricated Location: Right (Neurovascularly intact distally after placement) Procedural Sedation 1 (Initial Baseline): Consent Signed: Yes Any Problems With Anesthesia: No You/Your family experience fever (hyperthermia) w/anesthesia: No Sedation medication: Versed Dose: 7 Route: IV Total Moderate Sedation Units: 15 Mallampati Score: Class II ASA Classification: I Comment:: Initially, 4 mg was given without adequate sedation, so another 3 was given. IV fluids were not running, so then it was flushed, at which point she was sedated well. Transient hypopnea without hypoxemia. No other complications. Tolerated well. Other Procedures Procedure(s): Manual reduction right open ankle fracture/dislocation: This was done manually, ensuring that skin was not caught within the dislocation site after the patient was sedated. Splinted at the same time. Good reduction on postreduction x-rays 2 view right ankle read by myself. Discharge Plan Triage Chief Complaint: Lower Extremity Injury ED Provider: Peter Solano Dx/Rx/DC Orders Clinical Impression: Open fracture dislocation of right ankle, Fall from slipping on wet surface Prescriptions: No Action atorvastatin 40 MG tablet 40 mg PO QHS metformin 500 MG tablet 500 mg PO BID Label Comments: TAKE ONE TABLET BY MOUTH TWICE DAILY famotidine 20 MG tablet 20 mg PO QHS Label Comments: TAKE ONE TABLET BY MOUTH ONCE DAILY omeprazole 10 MG capsule,delayed release(DR/EC) 10 mg PO DAILY Label Comments: TAKE ONE CAPSULE EVERY DAY venlafaxine 37.5 MG capsule,extended release 24hr 37.5 mg PO DAILY Qty: 30 0RF aspirin 81 MG tablet 81 mg PO DAILY@0800 lisinopril 2.5 MG tablet 2.5 mg PO DAILY phenazopyridine [Pyridium] 200 MG tablet 200 mg PO TID PRN PRN (Reason: Bladder Spasms) 7 Days Qty: 30 0RF acetaminophen-codeine [acetaminophen-codeine] 1 TABLET tablet 1 - 2 tab PO Q6H PRN PRN (Reason: Pain Score 6-10/10) 3 Days Qty: 20 0RF cephalexin [cephalexin] 500 MG capsule 500 mg PO Q12 3 Days Qty: 6 0RF Primary Care Provider: Devyn Wong Chi Referrals: Devyn Wong Chi, MD [Primary Care Provider] - Disposition Disposition: Acute Care Hospital
[2021-10-31] MEDS: Cefazolin 1 GM/50 ML BAG IV (01:44)
[2021-10-31] MEDS: 0.9% Normal Saline 1,000 ML 999 ML IV (01:44)
[2021-10-31] MEDS: fentaNYL 100 MCG/2 ML Ampul 50 MCG IV (02:01)
[2021-10-31 02:04] LABS: Absolute Neutrophil Count 5.6 X10^3/uL (2.0-7.7); Basophil# 0.02 X10^3/uL; Basophil% 0.3 % (0-1); Eosinophil# 0.07 X10^3/uL; Eosinophils% 0.9 % (0-5); Hematocrit 40.3 % (37-47); Hemoglobin 12.6 g/dL (12.0-15.0); Mean Corp Hgb Conc 31.3 g/dL (32-36); Mean Corpuscular Hgb 27.2 pg (27.0-32.0); Mean Corpuscular Volume 86.9 fL (81-99); Mean Platelet Vol. 8.7 fl (6.2-12.0); Monocyte# 0.53 X10^3/uL; Monocyte% 7.1 % (0-10); NRBC Flagged by Analyzer 0 % (0-5); Neutrophil # 5.62 X10^3/uL (2.7-7.7); Neutrophil % 74.9 % (47-70); Platelet Count 314 K/mm3 (150-450); RBC Distribution Width CV 15.3 % (11.6-14.6); RBC Distribution Width SD 48.6 fl (35.1-43.9); Red Blood Count 4.64 M/mm3 (4.2-5.4); White Blood Count 7.5 K/mm3 (4.4-11.0)
[2021-10-31 02:17] LABS: Anion Gap 9 (5-15); BUN 18 mg/dL (7-18); Calcium,Total 9.2 mg/dL (8.5-10.1); Chloride 106 mmol/L (98-107); EST Glomerular Filtration Rate 47 mL/min (>60); Est Glom Filt Rate - Afr Amer 57 mL/min (>60); Estimated Creatinine Clearance 38.13 ml/min; Glucose 138 mg/dL (74-106); Sodium Level 139 mmol/L (136-145)
[2021-10-31] MEDS: Midazolam 5 MG/ML Syringe 4 MG IV (02:20)
[2021-10-31] MEDS: Midazolam 2 MG/2 ML Syringe 3 MG IV (02:28)
--- NOTE | 2021-10-31 02:36 | RAD_ITS ---
EXAM: XR RIGHT ANKLE, 2 VIEWS CLINICAL INDICATION: post reduction TECHNIQUE: Frontal and lateral views of the right ankle. This report was created using [employer] report generation technology. COMPARISON: right ankle from same date FINDINGS: BONES/JOINTS: Reduction of the fracture dislocation identified on the previous exam, with near-anatomic alignment. No sclerotic or destructive changes observed. SOFT TISSUES: Soft tissue swelling. No radiopaque foreign body. RAD/Ankle 2 Views IMPRESSION: 1. Reduction of the fracture dislocation identified on the previous exam, with near-anatomic alignment. 2. Soft tissue swelling. Electronically Signed: Andrea Lockett MD at 3:28 EDT ,
== END 2021-10-31 03:26 | disposition short-term general hospital (02) ==
PROVIDERS: Emergency Provider Emergency Medicine; PCP Family Medicine Geriatric Medicine; Visit Provider Emergency Medicine
DX: S82.51XB Displaced fracture of medial malleolus of right tibia, initial encounter for open fracture type I or II (principal); E11.9 Type 2 diabetes mellitus without complications; F17.210 Nicotine dependence, cigarettes, uncomplicated; S82.831A Other fracture of upper and lower end of right fibula, initial encounter for closed fracture; E78.00 Pure hypercholesterolemia, unspecified; K21.9 Gastro-esophageal reflux disease without esophagitis; F32.A Depression, unspecified; Z79.84 Long term (current) use of oral hypoglycemic drugs; Z79.82 Long term (current) use of aspirin; Z79.899 Other long term (current) drug therapy; W01.0XXA Fall on same level from slipping, tripping and stumbling without subsequent striking against object, initial encounter
CPT/HCPCS: 27762; 73590; 73600; 80048; 82077; 85025; 96365; 96375; 99152; 99285; J7030; A4216

== ENCOUNTER 2022-03-26 13:36 | Outpatient (CLI) | payer MEDICARE, SELFPAY ==
[2022-03-26 16:57] LABS: Absolute Lymphocyte Count 1.29 X10^3/uL (0.83-4.51); Absolute Neutrophil Count 4.5 X10^3/uL (2.0-7.7); Basophil# 0.02 X10^3/uL; Basophil% 0.3 % (0-1); Eosinophil# 0.07 X10^3/uL; Eosinophils% 1.1 % (0-5); Hematocrit 40.5 % (37-47); Hemoglobin 12.7 g/dL (12.0-15.0); Lymphocyte # 1.29 X10^3/ul (0.83-4.51); Lymphocyte % 19.8 % (19-41); Mean Corp Hgb Conc 31.4 g/dL (32-36); Mean Corpuscular Hgb 25.6 pg (27.0-32.0); Mean Corpuscular Volume 81.5 fL (81-99); Mean Platelet Vol. 9.2 fl (6.2-12.0); Monocyte# 0.59 X10^3/uL; Monocyte% 9.1 % (0-10); NRBC Flagged by Analyzer 0 % (0-5); Neutrophil # 4.49 X10^3/uL (2.7-7.7); Neutrophil % 69.1 % (47-70); Platelet Count 334 K/mm3 (150-450); RBC Distribution Width CV 18.4 % (11.6-14.6); RBC Distribution Width SD 54.4 fl (35.1-43.9); Red Blood Count 4.97 M/mm3 (4.2-5.4); White Blood Count 6.5 K/mm3 (4.4-11.0)
[2022-03-26 17:35] LABS: Vitamin D,25 Hydroxy 37.3 ng/mL
[2022-03-26 17:49] LABS: ALB/GLOB Ratio 0.9 RATIO (0.9-2.4); AST(SGOT) 15 U/L (15-37); Alanine Aminotransfer ALT/SGPT 21 U/L (13-56); Albumin, Serum 3.2 g/dL (3.2-5.0); Alkaline Phosphatase 154 U/L (45-117); Anion Gap 11 (5-15); BUN 12 mg/dL (7-18); BUN/Creat Ratio 14.8 RATIO (10-20); Calcium,Total 8.8 mg/dL (8.5-10.1); Chloride 106 mmol/L (98-107); Creatinine, Serum 0.81 mg/dL (0.55-1.02); EST Glomerular Filtration Rate 73 mL/min (>60); Est Glom Filt Rate - Afr Amer 89 mL/min (>60); Globulin 3.7 g/dL (2.2-4.2); Glucose 115 mg/dL (74-106); Potassium 3.8 mmol/L (3.5-5.1); Protein, Total 6.9 g/dL (6.4-8.2); Sodium Level 138 mmol/L (136-145); Thyroid Stim Hormone (TSH) 1.53 uIU/mL (0.358-3.74)
== END 2022-03-26 23:59 | disposition home or self-care (01) ==
LOC: POLAB3 13:37
PROVIDERS: PCP Family Medicine Geriatric Medicine; Visit Provider Family Medicine Geriatric Medicine
DX: I10 Essential (primary) hypertension (principal); E11.9 Type 2 diabetes mellitus without complications; E55.9 Vitamin D deficiency, unspecified
CPT/HCPCS: 36415; 80053; 82306; 84443; 85025

== ENCOUNTER → 2022-09-15 | Outpatient (CLI) | payer MEDICARE, SELFPAY ==
[2022-09-15 14:00] LABS: Absolute Lymphocyte Count 1.23 X10^3/uL (0.83-4.51); Absolute Neutrophil Count 3.8 X10^3/uL (2.0-7.7); Basophil# 0.02 X10^3/uL; Basophil% 0.4 % (0-1); Eosinophil# 0.14 X10^3/uL; Eosinophils% 2.5 % (0-5); Hematocrit 40.9 % (37-47); Hemoglobin 13.3 g/dL (12.0-15.0); Lymphocyte # 1.23 X10^3/ul (0.83-4.51); Lymphocyte % 22.1 % (19-41); Mean Corp Hgb Conc 32.5 g/dL (32-36); Mean Corpuscular Hgb 28.3 pg (27.0-32.0); Mean Platelet Vol. 8.9 fl (6.2-12.0); Monocyte% 7.2 % (0-10); NRBC Flagged by Analyzer 0 % (0-5); Neutrophil # 3.75 X10^3/uL (2.7-7.7); Neutrophil % 67.4 % (47-70); Platelet Count 309 K/mm3 (150-450); RBC Distribution Width CV 16.1 % (11.6-14.6); RBC Distribution Width SD 51.3 fl (35.1-43.9); White Blood Count 5.6 K/mm3 (4.4-11.0)
[2022-09-15 14:35] LABS: ALB/GLOB Ratio 0.8 RATIO (0.9-2.4); AST(SGOT) 15 U/L (15-37); Alanine Aminotransfer ALT/SGPT 18 U/L (13-56); Alkaline Phosphatase 140 U/L (45-117); Anion Gap 9 (5-15); BUN 17 mg/dL (7-18); Calcium,Total 8.9 mg/dL (8.5-10.1); Chloride 109 mmol/L (98-107); Creatinine, Serum 0.77 mg/dL (0.55-1.02); EST Glomerular Filtration Rate 78 mL/min (>60); Est Glom Filt Rate - Afr Amer 94 mL/min (>60); Globulin 3.9 g/dL (2.2-4.2); Glucose 140 mg/dL (74-106); Potassium 4.1 mmol/L (3.5-5.1); Protein, Total 6.9 g/dL (6.4-8.2); Sodium Level 139 mmol/L (136-145); Thyroid Stim Hormone (TSH) 1.04 uIU/mL (0.358-3.74)
== END | disposition home or self-care (01) ==
LOC: POLAB3 13:24
PROVIDERS: PCP Family Medicine Geriatric Medicine; Visit Provider Family Medicine Geriatric Medicine
DX: E11.65 Type 2 diabetes mellitus with hyperglycemia (principal); I10 Essential (primary) hypertension; E55.9 Vitamin D deficiency, unspecified
CPT/HCPCS: 36415; 80053; 82306; 84443; 85025

== ENCOUNTER → 2023-03-29 | Outpatient (CLI) | payer MEDICARE, SELFPAY ==
[2023-03-29 14:54] LABS: Absolute Neutrophil Count 7.1 X10^3/uL (2.0-7.7); Basophil# 0.02 X10^3/uL; Basophil% 0.2 % (0-1); Eosinophil# 0.13 X10^3/uL; Eosinophils% 1.4 % (0-5); Hematocrit 44.4 % (37-47); Hemoglobin 14.2 g/dL (12.0-15.0); Lymphocyte % 14.2 % (19-41); Mean Corpuscular Hgb 28.9 pg (27.0-32.0); Mean Corpuscular Volume 90.2 fL (81-99); Mean Platelet Vol. 9.5 fl (6.2-12.0); Monocyte# 0.54 X10^3/uL; Monocyte% 5.9 % (0-10); NRBC Flagged by Analyzer 0 % (0-5); Neutrophil # 7.11 X10^3/uL (2.7-7.7); Platelet Count 304 K/mm3 (150-450); RBC Distribution Width CV 14.9 % (11.6-14.6); RBC Distribution Width SD 49.7 fl (35.1-43.9); Red Blood Count 4.92 M/mm3 (4.2-5.4); White Blood Count 9.1 K/mm3 (4.4-11.0)
[2023-03-29 15:07] LABS: Vitamin D,25 Hydroxy 41.7 ng/mL
[2023-03-29 15:20] LABS: ALB/GLOB Ratio 0.8 RATIO (0.9-2.4); AST(SGOT) 15 U/L (15-37); Alanine Aminotransfer ALT/SGPT 24 U/L (13-56); Albumin, Serum 3.2 g/dL (3.2-5.0); Alkaline Phosphatase 147 U/L (45-117); Anion Gap 7 (5-15); BUN 14 mg/dL (7-18); BUN/Creat Ratio 14.2 RATIO (10-20); Calcium,Total 9.3 mg/dL (8.5-10.1); Chloride 107 mmol/L (98-107); Creatinine, Serum 0.99 mg/dL (0.55-1.02); EST Glomerular Filtration Rate 58 mL/min (>60); Est Glom Filt Rate - Afr Amer 71 mL/min (>60); Globulin 3.9 g/dL (2.2-4.2); Glucose 155 mg/dL (74-106); Potassium 3.7 mmol/L (3.5-5.1); Protein, Total 7.1 g/dL (6.4-8.2); Sodium Level 139 mmol/L (136-145); Thyroid Stim Hormone (TSH) 1.85 uIU/mL (0.358-3.74)
== END | disposition home or self-care (01) ==
LOC: POLAB3 13:00
PROVIDERS: PCP Family Medicine Geriatric Medicine; Visit Provider Family Medicine Geriatric Medicine
DX: E11.65 Type 2 diabetes mellitus with hyperglycemia (principal); I10 Essential (primary) hypertension; E55.9 Vitamin D deficiency, unspecified; N39.0 Urinary tract infection, site not specified
CPT/HCPCS: 36415; 80053; 82306; 84443; 85025; 87077; 87086; 87088; 87186

== ENCOUNTER → 2023-04-05 | Outpatient (CLI) | payer MEDICARE, SELFPAY ==
--- NOTE | 2023-04-05 13:24 | BI_ITS ---
MAMMOGRAPHY - BILATERAL SCREENING REASON FOR EXAM: Female, 73 years old. Routine annual screening examination. PERTINENT HISTORY: Non-contributory. TECHNIQUE: Digital bilateral breast mark (3D mammographic acquisition) in the CC and MLO projections. 2-D mediolateral oblique (MLO) and craniocaudad (CC) views of both breasts were obtained. CAD: Full Field Digital Mammography with Computer Added Detection was performed. COMPARISON: Comparison is made with prior study April 08, 2021 and May 04, 2018. FINDINGS: Breast Composition: The breasts are almost entirely fatty. There are no dominant masses or suspicious calcifications. Stable small benign-appearing bilateral axillary lymph nodes. No other significant abnormalities are identified. There has been no significant change since the prior study. BI/SCRN MAMM (CAD)W/MARK BILAT IMPRESSION: Stable bilateral screening mammogram. Yearly follow-up mammogram recommended. (A) ASSESSMENT CATEGORY: BIRADS Category 2: Benign. A letter regarding these results will be sent to the patient by the facility within 30 days. Approximately 10% of breast cancers are not detected by mammography. A normal mammogram should not delay biopsy of a clinically suspicious abnormality. [id number] Electronically Signed: Vitor Umanzor MD at 14:35 EST ,
== END | disposition home or self-care (01) ==
LOC: OPBI 13:22
PROVIDERS: PCP Family Medicine Geriatric Medicine; Referring Provider Family Medicine Geriatric Medicine; Visit Provider Family Medicine Geriatric Medicine
DX: Z12.31 Encounter for screening mammogram for malignant neoplasm of breast (principal)
CPT/HCPCS: 77063; 77067

== ENCOUNTER → 2023-04-15 | Outpatient (CLI) | payer MEDICARE, SELFPAY ==
--- NOTE | 2023-04-15 14:42 | CT_ITS ---
STUDY: LOW DOSE CT LUNG CANCER SCREENING REASON FOR EXAM: Female, 73 years old. NICOTINE DEP. Current smoker. One pack per day for 30 years. RADIATION DOSAGE (If Supplied By Facility): CTDIvol = ( 3.02 ) mGy, DLP = ( 92.89 ) mGycm TECHNIQUE: No contrast was administered. Low dose technique was utilized (average mAS-38 and kVp 120). 1.25 mm axial source images with a slice interval of 1.25-mm were reconstructed in lung windows. 2.5 mm axial source images with a slice interval of 2.5-mm were reconstructed in lung windows. 5.0 mm axial source images with a slice interval of 5.0-mm were reconstructed in soft tissue windows. COMPARISON: Comparison is made with prior study dated March 16, 2008. NODULES: Stable 5 mm noncalcified nodule in the right middle lobe anteriorly as seen on axial image #132. 1.5 mm noncalcified in the posterior segment of the left lower lobe as seen on axial image #133. Emphysema: Mild apical scarring at the lung apices. Emphysematous changes more prominent in the upper lobes. Endobronchial lesion: None Aorta: Calcified plaques at the level of the aortic arch. CORONARY ARTERIES: Coronary artery calcification is seen. Heart: Unremarkable Pulmonary artery: Unremarkable Mediastinal nodes: Unremarkable Other chest and abdominal findings: CT/Low Dose CT Lung Screening IMPRESSION: Lung-RADS category 2 - Continue annual screening with LDCT in 12 months. IMPORTANT NOTES FOR USE: ACR Lung-RADS Version 1.1 Assessment Categories Release Date: 2018 Category: Coded 0-4 bases on nodule(s) with highest degree of suspicion. Negative screen is defined as categories 1 and 2; a positive screen is defined as categories 3 and 4. Category 3 and 4A nodules that are unchanged on interval CT should be coded as category 2, and individuals returned to screening in 12 months. Category 4X: Category 3 or 4 nodules with additional imaging findings that increase the suspicion of lung cancer, such as spiculation, GGN that doubles in size in 1 year, enlarged lymph notes, etc. Category Modifiers: S (significant finding unrelated to lung cancer) Electronically Signed: Vitor Umanzor MD at 15:17 EST ,
== END | disposition home or self-care (01) ==
PROVIDERS: PCP Family Medicine Geriatric Medicine; Referring Provider Family Medicine Geriatric Medicine; Visit Provider Family Medicine Geriatric Medicine
DX: Z12.2 Encounter for screening for malignant neoplasm of respiratory organs (principal); F17.210 Nicotine dependence, cigarettes, uncomplicated
CPT/HCPCS: 71271

== ENCOUNTER → 2023-08-09 | Outpatient (CLI) | payer MEDICARE, SELFPAY | END | disposition home or self-care (01) | LOC: PSN 11:55 | PROVIDERS: PCP Family Medicine Geriatric Medicine; Referring Provider Family Medicine Geriatric Medicine; Visit Provider Family Medicine Geriatric Medicine | DX: R68.83 Chills (without fever) (principal) | CPT/HCPCS: 87631 ==

== ENCOUNTER → 2023-09-30 | Outpatient (CLI) | payer MEDICARE, SELFPAY ==
[2023-09-30 11:16] LABS: Absolute Lymphocyte Count 1.46 X10^3/uL (0.83-4.51); Absolute Neutrophil Count 4.4 X10^3/uL (2.0-7.7); Basophil# 0.02 X10^3/uL; Basophil% 0.3 % (0-1); Eosinophil# 0.13 X10^3/uL; Hematocrit 45.2 % (37-47); Hemoglobin 14.7 g/dL (12.0-15.0); Lymphocyte # 1.46 X10^3/ul (0.83-4.51); Lymphocyte % 22.4 % (19-41); Mean Corp Hgb Conc 32.5 g/dL (32-36); Mean Corpuscular Hgb 30.1 pg (27.0-32.0); Mean Corpuscular Volume 92.6 fL (81-99); Mean Platelet Vol. 8.9 fl (6.2-12.0); Monocyte# 0.49 X10^3/uL; Monocyte% 7.5 % (0-10); NRBC Flagged by Analyzer 0 % (0-5); Neutrophil # 4.37 X10^3/uL (2.7-7.7); Neutrophil % 67.2 % (47-70); Platelet Count 303 K/mm3 (150-450); RBC Distribution Width CV 14.1 % (11.6-14.6); RBC Distribution Width SD 48.3 fl (35.1-43.9); Red Blood Count 4.88 M/mm3 (4.2-5.4); White Blood Count 6.5 K/mm3 (4.4-11.0)
[2023-09-30 11:35] LABS: Vitamin D,25 Hydroxy 50.5 ng/mL
[2023-09-30 12:04] LABS: ALB/GLOB Ratio 0.9 RATIO (0.9-2.4); AST(SGOT) 19 U/L (15-37); Alanine Aminotransfer ALT/SGPT 23 U/L (13-56); Albumin, Serum 3.5 g/dL (3.2-5.0); Alkaline Phosphatase 151 U/L (45-117); Anion Gap 7 (5-15); BUN 13 mg/dL (7-18); BUN/Creat Ratio 13.7 RATIO (10-20); Calcium,Total 9.6 mg/dL (8.5-10.1); Chloride 103 mmol/L (98-107); Cholesterol 180 mg/dL (200); Creatinine, Serum 0.95 mg/dL (0.55-1.02); EST Glomerular Filtration Rate 61 mL/min (>60); Est Glom Filt Rate - Afr Amer 74 mL/min (>60); Globulin 3.8 g/dL (2.2-4.2); Glucose 122 mg/dL (74-106); High Density Lipoprotein 53 mg/dL; Potassium 4.4 mmol/L (3.5-5.1); Protein, Total 7.3 g/dL (6.4-8.2); Sodium Level 137 mmol/L (136-145); Thyroid Stim Hormone (TSH) 1.86 uIU/mL (0.358-3.74); Triglycerides 127 mg/dL; Very Low Density Lipoprotein 25 mg/dL (5-40)
== END | disposition home or self-care (01) ==
PROVIDERS: PCP Family Medicine Geriatric Medicine; Visit Provider Family Medicine Geriatric Medicine
DX: I10 Essential (primary) hypertension (principal); E11.65 Type 2 diabetes mellitus with hyperglycemia; E55.9 Vitamin D deficiency, unspecified; E78.5 Hyperlipidemia, unspecified
CPT/HCPCS: 36415; 80053; 80061; 82306; 84443; 85025

== ENCOUNTER → 2024-02-02 | Outpatient (CLI) | payer MEDICARE, SELFPAY | END | disposition home or self-care (01) | LOC: POLAB3 14:50 | PROVIDERS: PCP Family Medicine Geriatric Medicine; Visit Provider Family Medicine Geriatric Medicine | DX: N39.0 Urinary tract infection, site not specified (principal) | CPT/HCPCS: 87086; 87088; 87186 ==

== ENCOUNTER → 2024-03-20 | Outpatient (CLI) | payer MEDICARE, SELFPAY ==
--- NOTE | 2024-03-20 15:34 | RAD_ITS ---
STUDY: X-RAY - LUMBAR SPINE REASON FOR EXAM: Female, 74 years old. LUMBAR DISC DISEASE TECHNIQUE: 4 view(s) of the lumbar spine were obtained. COMPARISON: None FINDINGS: Normal lumbar lordosis. There is no substantial scoliosis. There is a normal alignment of the vertebrae. There is multilevel endplate spondylosis of the lumbar vertebrae. There is multi-level degenerative disc disease with multi-level disc space narrowing. There is multilevel facet hypertrophy. The soft tissue structures are unremarkable. RAD/L/S Spine Min 4 Views IMPRESSION: Degenerative changes of the spine, as detailed above. MRI may be useful. Electronically Signed: Sam Castle MD at 12:17 EST ,
== END | disposition home or self-care (01) ==
LOC: RAD 15:29
PROVIDERS: PCP Family Medicine Geriatric Medicine; Referring Provider Family Medicine Geriatric Medicine; Visit Provider Family Medicine Geriatric Medicine
DX: M47.816 Spondylosis without myelopathy or radiculopathy, lumbar region (principal); M51.369 Other intervertebral disc degeneration, lumbar region without mention of lumbar back pain or lower extremity pain; M48.061 Spinal stenosis, lumbar region without neurogenic claudication
CPT/HCPCS: 72110

== ENCOUNTER → 2024-03-31 | Outpatient (CLI) | payer MEDICARE, SELFPAY ==
--- NOTE | 2024-03-31 13:07 | MRI_ITS ---
STUDY: MRI LUMBAR SPINE WITHOUT CONTRAST REASON FOR EXAM: Female, 74 years old. LOWER BACK PAIN TECHNIQUE: Standardized fat and water weighted pulse sequences were obtained in the sagittal and axial planes. COMPARISON: None FINDINGS: T12-L1: Narrowed disc space with desiccation of disc and minimal annular bulge.. Normal bilateral facet joints. Normal central canal and bilateral lateral recesses. Normal bilateral intervertebral neural foramina. Normal lumbar lordosis. There is no substantial scoliosis. Normal conus medullaris that terminates at T12-L1 L1-2: Normal endplates. Normal disc height, desiccation and normal morphology. Normal bilateral facet joints. Minor narrowing the central canal secondary to posterior epidural fat. Normal bilateral lateral recesses. Normal bilateral intervertebral neural foramina. L2-3: Degenerative endplate changes narrowed disc space with desiccation of the disc and mild annular bulge with small left foraminal disc protrusion. Normal bilateral facet joints. Mild narrowing of central canal exaggerated by prominent posterior epidural fat. Normal bilateral facet.. Mild right neuroforaminal stenosis and moderate narrowing on the left L3-4: Normal endplates. Normal disc height, desiccation mild annular bulge with small left foraminal disc protrusion. Mild facet arthropathy. Moderate narrowing of central canal exaggerated by posterior epidural fat. Normal bilateral lateral recesses. Mild right neural foraminal stenosis and moderate stenosis on the left L4-5: Interosseous hemangioma within the L4 vertebral body Normal endplates. Normal disc height, desiccation and tiny right foraminal disc protrusion. Facet arthropathy and thickening of ligamenta flava. Mild narrowing of the central canal due to posterior epidural fat pad. Normal bilateral lateral recesses. Mild to moderate right neural foraminal stenosis. L5-S1: Degenerative endplate changes.. Normal disc height, desiccation minimal annular bulge with tiny left foraminal disc/osteophyte protrusion mild facet arthropathy. Mild narrowing of the central canal exaggerated by posterior epidural fat. Normal bilateral lateral recesses. Mild to moderate left neural foraminal stenosis Normal visualized sacral ala. Within the mid to lower sacral canal there is a large loculated fluid collection slightly larger on the left of indeterminate etiology possibly representing Tarlov cyst narrowing the canal and compressing as well as displacing the descending nerve roots anteriorly. Normal visualized paraspinous soft tissue structures. MRI/Spine Lumbar (Routine) IMPRESSION: No evidence for acute fracture or other significant bony pathology. Spondylosis and multilevel spinal stenosis secondary to disc disease and bony hypertrophy exaggerated by prominent posterior epidural fat. 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 Findings as above Electronically Signed: Erickson La MD at 17:20 EST ,
== END | disposition home or self-care (01) ==
LOC: MRI 13:02
PROVIDERS: PCP Family Medicine Geriatric Medicine; Referring Provider Family Medicine Geriatric Medicine; Visit Provider Family Medicine Geriatric Medicine
DX: M54.50 Low back pain, unspecified (principal)
CPT/HCPCS: 72148

== ENCOUNTER → 2024-04-04 | Outpatient (CLI) | payer MEDICARE, SELFPAY ==
[2024-04-04 13:27] LABS: Absolute Lymphocyte Count 1.53 X10^3/uL (0.83-4.51); Absolute Neutrophil Count 5.3 X10^3/uL (2.0-7.7); Basophil# 0.06 X10^3/uL; Basophil% 0.8 % (0-1); Eosinophil# 0.21 X10^3/uL; Eosinophils% 2.7 % (0-5); Hematocrit 42.4 % (37-47); Hemoglobin 14.4 g/dL (12.0-15.0); Lymphocyte # 1.53 X10^3/ul (0.83-4.51); Lymphocyte % 19.4 % (19-41); Mean Corpuscular Hgb 31.2 pg (27.0-32.0); Mean Corpuscular Volume 91.8 fL (81-99); Mean Platelet Vol. 8.6 fl (6.2-12.0); Monocyte# 0.72 X10^3/uL; Monocyte% 9.1 % (0-10); NRBC Flagged by Analyzer 0 % (0-5); Neutrophil # 5.31 X10^3/uL (2.7-7.7); Neutrophil % 67.2 % (47-70); Platelet Count 275 K/mm3 (150-450); RBC Distribution Width CV 13.2 % (11.6-14.6); RBC Distribution Width SD 44.8 fl (35.1-43.9); Red Blood Count 4.62 M/mm3 (4.2-5.4); White Blood Count 7.9 K/mm3 (4.4-11.0)
[2024-04-04 14:36] LABS: ALB/GLOB Ratio 0.9 RATIO (0.9-2.4); AST(SGOT) 13 U/L (15-37); Alanine Aminotransfer ALT/SGPT 24 U/L (13-56); Albumin, Serum 3.5 g/dL (3.2-5.0); Alkaline Phosphatase 131 U/L (45-117); Anion Gap 6 (5-15); BUN 18 mg/dL (7-18); BUN/Creat Ratio 26.3 RATIO (10-20); Calcium,Total 9.9 mg/dL (8.5-10.1); Chloride 108 mmol/L (98-107); Creatinine, Serum 0.68 mg/dL (0.55-1.02); EST Glomerular Filtration Rate 89 mL/min (>60); Est Glom Filt Rate - Afr Amer 108 mL/min (>60); Globulin 3.7 g/dL (2.2-4.2); Glucose 132 mg/dL (74-106); Potassium 4.1 mmol/L (3.5-5.1); Protein, Total 7.2 g/dL (6.4-8.2); Sodium Level 139 mmol/L (136-145); Thyroid Stim Hormone (TSH) 0.998 uIU/mL (0.358-3.740)
== END | disposition home or self-care (01) ==
LOC: POLAB3 13:09
PROVIDERS: PCP Family Medicine Geriatric Medicine; Visit Provider Family Medicine Geriatric Medicine
DX: E11.65 Type 2 diabetes mellitus with hyperglycemia (principal); I10 Essential (primary) hypertension; E55.9 Vitamin D deficiency, unspecified
CPT/HCPCS: 36415; 80053; 82306; 84443; 85025

== ENCOUNTER → 2024-04-25 | Outpatient (CLI) | payer MEDICARE, SELFPAY ==
--- NOTE | 2024-04-25 14:14 | CT_ITS ---
EXAM: CT CHEST, LUNG CANCER SCREENING WITHOUT INTRAVENOUS CONTRAST CLINICAL INDICATION: NICOTINE DEPENDENCE TECHNIQUE: Helically acquired images were obtained of the chest without intravenous contrast using low dose (LDCT) lung cancer screening protocol. This CT exam was performed using one or more of the following dose reduction techniques: automated exposure control, adjustment of the mA and/or kV according to patient size, and/or use of iterative reconstruction technique. COMPARISON: 04/15/2023 FINDINGS: LUNGS AND PLEURAL SPACES: There is a stable nodule right middle lobe abutting the fissure. There is also a small 2 mm nodule in the right upper lobe seen on series 2 image 103. There is a small nodule abutting the fissure in the right lower lobe and measures 2 mm on series 2 image 151. There is a stable 5 mm nodule in the left lower lobe on series 2 image 134. No pleural effusion or thickening. No pneumothorax. HEART: Unremarkable. Heart size is normal. No pericardial effusion. No significant coronary artery calcifications. MEDIASTINUM: Unremarkable. No mediastinal or hilar adenopathy. Esophagus is unremarkable. No hiatal hernia. THYROID: Unremarkable. No thyroid lesions. BONES/JOINTS: Unremarkable. No suspicious lytic or blastic abnormality. VASCULATURE: Unremarkable. Thoracic aorta is non-dilated. LYMPH NODES: Unremarkable. No enlarged lymph nodes. CT/Low Dose CT Lung Screening IMPRESSION: Stable bilateral noncalcified nodules. No acute abnormalities are identified. Lung-RADS score: 2 - Benign Appearance or Behavior. Recommend continued annual screening with a low-dose CT (LDCT) in 12 months. Electronically Signed: Prem Shah MD at 0:06 [facility] ,
== END | disposition home or self-care (01) ==
LOC: CT 14:12
PROVIDERS: PCP Family Medicine Geriatric Medicine; Referring Provider Family Medicine Geriatric Medicine; Visit Provider Family Medicine Geriatric Medicine
DX: Z12.2 Encounter for screening for malignant neoplasm of respiratory organs (principal); F17.210 Nicotine dependence, cigarettes, uncomplicated
CPT/HCPCS: 71271